=== PATIENT | male | born 1950 | race Caucasian/White ===

== ENCOUNTER 2019-04-18 14:32 | Outpatient (RCR) | payer MEDICARE, OTHER, SELFPAY | END 2019-05-12 23:59 | disposition home or self-care (01) | LOC: CR 14:32 | PROVIDERS: Family Provider Internal Medicine; PCP Internal Medicine; Referring Provider Internal Medicine Cardiovascular Disease; Visit Provider Internal Medicine Cardiovascular Disease | DX: Z98.61 Coronary angioplasty status (principal); I25.2 Old myocardial infarction | CPT/HCPCS: 93798 ==

== ENCOUNTER 2019-05-15 10:40 | Outpatient (RCR) | payer MEDICARE, OTHER, SELFPAY | END 2019-06-10 23:59 | disposition home or self-care (01) | LOC: CR 10:40 | PROVIDERS: Family Provider Internal Medicine; PCP Internal Medicine; Referring Provider Internal Medicine Cardiovascular Disease; Visit Provider Internal Medicine Cardiovascular Disease | DX: I25.2 Old myocardial infarction (principal); Z95.5 Presence of coronary angioplasty implant and graft | CPT/HCPCS: 93798 ==

== ENCOUNTER 2019-06-12 11:19 | Outpatient (RCR) | payer MEDICARE, OTHER, SELFPAY | END 2019-07-11 23:59 | disposition home or self-care (01) | LOC: CR 11:19 | PROVIDERS: Family Provider Internal Medicine; PCP Internal Medicine; Referring Provider Internal Medicine Cardiovascular Disease; Visit Provider Internal Medicine Cardiovascular Disease | DX: Z98.61 Coronary angioplasty status (principal) | CPT/HCPCS: 93798 ==

== ENCOUNTER → 2020-01-29 14:37 | Outpatient (BNVA) | payer MEDICARE, OTHER, SELFPAY | PROVIDERS: Family Provider Internal Medicine; PCP Internal Medicine; Visit Provider Nurse Practitioner Family | DX: I10 Essential (primary) hypertension (principal); I25.10 Atherosclerotic heart disease of native coronary artery without angina pectoris | CPT/HCPCS: 80048 ==

== ENCOUNTER 2020-04-03 20:24 | Emergency (ER) | payer MEDICARE, OTHER, SELFPAY ==
[2020-04-03 20:27] VITALS: BP 163/82; PULSE 58; RESP 18; TEMP 36.7; O2SAT 97; BMI 26.4
--- NOTE | 2020-04-03 20:54 | XRR_ITS ---
PROCEDURE INFORMATION: Exam: XR Chest, 1 View Exam date and time: 04/03/2020 9:02 PM Age: 69 years old Clinical indication: Chest pain; Type not specified; Prior surgery; Surgery type: Stents; Additional info: Chest discomfort TECHNIQUE: Imaging protocol: XR of the chest Views: 1 view. COMPARISON: CR Chest 2 views* [id number] 03/01/2019 11:42 AM FINDINGS: Lungs: Unremarkable. No consolidation. Pleural space: Unremarkable. No pleural effusion. No pneumothorax. Heart/Mediastinum: Unremarkable. No cardiomegaly. Bones/joints: A metal plate and screws is present from lower cervical spine fusion. XR/XR chest 1V portable [id number] IMPRESSION: No acute abnormalities are seen in the chest.
--- NOTE | 2020-04-03 20:57 | ED_ITS ---
Documented by User: James Victoria MD 04/03/20 23:41 HPI - Chest Pain General: Chief Complaint: Chest Pain Stated Complaint: primary sent over if pb didn't lower by 8pm 182/78 Time Seen by Provider: 04/03/20 20:47 History of Present Illness: HPI narrative: The patient is a 69-year-old male who comes to the ER complaining of discomfort in his mid chest he describes as heartburn, flushing in his face, and elevated blood pressure for the past few hours. He went and saw his physician today who said of his blood pressure was not less than 180 at 8 PM to go to the ER. He took it at 8 PM and it was 181 systolic so he comes to the ER. Here his blood pressure is 163 systolic and he feels quite a bit better but still has the heartburn pain and mild flushing of his face. He has known cardiac disease with stents he had an GA in February 2019. He does not feel chest pain today Pertinent past history: coronary artery disease and prior GA Onset (ago): hour(s) (3) Timing of current episode: episodic Prior episodes: No Onset: during rest Pain radiation: none Severity: mild Quality: burning Associated symptoms: Deny abdominal pain, dyspnea or palpitations Review of Systems General: Reports: 10 or more systems reviewed and unremarkable except in HPI and below Const: Denies: fatigue Eyes: Denies: change in vision, blurry vision or eye redness ENMT: Denies: throat pain, swelling of lips/tongue, ear or mastoid pain or nasal congestion Card: Denies: chest pain, palpitations, irregular heart rhythm, edema, dyspnea on exertion or orthopnea Resp: Denies: dyspnea, productive cough or non-productive cough GI: Denies: abdominal pain, diarrhea or GI cramping : Denies: flank pain, urinary frequency or urinary urgency Musc: Denies: neck pain, back pain, extremity pain, joint pain, joint redness, limited range of motion or muscle weakness Skin/Breast: Denies: rash, pruritus, erythema, skin pain or skin tenderness Neuro: Denies: headache(s), numbness in extremities, weakness in extremities, sensory changes, difficulty walking, dizziness, confusion or Slurred speech present Psych: Denies: anxiety or depression Endo: Denies: polyuria All/Imm: Denies: urticaria, throat swelling or tongue swelling PFSH ED PFS: Medical History (Updated 04/03/20 @ 23:45 by Kiera Ojeda MD) ASHD (arteriosclerotic heart disease) Dyslipidemia HTN (hypertension) Myocardial infarction Surgical History S/P PTCA (percutaneous transluminal coronary angioplasty) Social History Smoking and tobacco status: never smoked Alcohol intake: never Household members: spouse Marital status: Physical Exam Const: COMMON NORMALS: no acute distress, average body habitus, patient oriented x3, no limitations, healthy appearing, alert and well nourished GENERAL APPEARANCE: cooperative, comfortable, well kempt and well developed ORIENTATION/CONSCIOUSNESS: Yes awake, Yes oriented to person, Yes oriented to place and Yes oriented to time HENMT: COMMON NORMALS: normocephalic, external ears normal and Normal external nose present HEAD & SCALP: normal to inspection and normocephalic NOSE: Normal external nose present EXTERNAL EAR: Yes external ears normal MOUTH: Normal oral and palatal mucosa present THROAT: posterior oropharynx normal Eye: COMMON NORMALS: Equal, round and reactive pupils present and EOMs intact bilaterally GENERAL EYE: appearance normal, both eyes and all related structures PUPIL: Yes Equal, round and reactive pupils present Neck/C-Spine: COMMON NORMALS: full ROM, no lymphadenopathy, no meningeal signs and no JVD GENERAL: Yes normal visual inspection Lymph: LYMPHATIC: no lymphadenopathy noted Chest: COMMONS NORMALS: normal inspection of the chest and normal palpation of entire chest wall Resp: COMMON NORMALS: normal respiratory effort, No retractions, No use of accessory muscles, clear to auscultation bilaterally and percussion normal EFFORT & INSPECTION: Yes able to speak in complete sentences AUSCULTATION: clear to auscultation bilaterally PERCUSSION: percussion normal Cardio: COMMON NORMALS: no JVD, regular rate, regular rhythm, S1 normal heart sound present, S2 normal heart sound present and Peripheral pulses 2+ throughout RATE: regular rate RHYTHM: regular rhythm HEART SOUNDS: S1 normal heart sound present and S2 normal heart sound present PERIPHERAL PULSES: Peripheral pulses 2+ throughout GI: COMMON NORMALS: Normal to inspection, nondistended, normoactive bowel sounds present, Soft to palpation, non-tender and no masses INSPECTION: Yes normal to inspection PALPATION: Yes Soft to palpation : COMMON NORMALS: Yes no CVA tenderness BLADDER/KIDNEY EXAM: Yes no CVA tenderness Back/Pelvis: COMMON NORMALS: no CVA tenderness, thoracic and lumbar spine normal to inspection, no thoracic nor lumbar tenderness and thoraco-lumbar ROM normal Extremity: COMMON NORMALS: normal to inspection, full ROM, capillary refill normal, no joint enlargement and no pedal edema GENERAL: Yes normal exam ex cept as noted Neuro: COMMON NORMALS: patient oriented x3, CN's II-XII intact bilaterally, moves all extremities, no focal motor deficits, no sensory deficits noted and gait normal SENSORIUM/ORIENTATION: Yes alert, Yes oriented to person, Yes oriented to place and Yes oriented to time MENINGEAL SIGNS: Yes no meningeal signs Psych: COMMON NORMALS: mental status grossly normal, Normal thought process present, cooperative, normal affect and speech normal APPEARANCE: Yes well kempt ATTITUDE: Yes calm SPEECH: Yes normal speech THOUGHT PROCESS: Normal thought process present Skin: COMMON NORMALS: no rashes or lesions noted GENERAL SKIN EXAM: no rashes or lesions noted Course Reevaluation(s): Reevaluation #1: Blood pressure spontaneously reduced to 136 systolic. His symptoms of flushing have resolved, headache much less. The GI cocktail resolved his heartburn discomfort that he was having almost immediately. First troponin is negative, waiting on the second then will discharge. Transfer care to Dr. Ojeda at 1141PM. waiting on 2nd troponin. Time: 23:27 Vital Signs: Vital signs: Vital Signs Temperature 98.1 F 04/03/20 20:27 Pulse Rate 65 04/03/20 23:53 Respiratory Rate 16 04/03/20 23:53 Blood Pressure 127/70 04/03/20 23:53 Pulse Oximetry 99 04/03/20 23:53 MDM - Chest Pain Lab Data: Labs: Lab Results 04/03/20 04/03/20 04/03/20 Range/Units 21:10 21:10 21:10 WBC 6.6 (4.0-10.0) 10^3/ uL RBC 5.15 (4.1-5.3) 10^6/u L Hgb 14.6 (11.7-16.6) g/dL Hct 45.0 (42.0-52.0) % MCV 87.4 (80-94) fL MCH 28.3 (28.0-34.0) pg MCHC 32.4 (30.0-36.0) g/dL RDW 12.7 (12.1-15.1) % Plt Count 195 (130-400) 10^3/c mm MPV 10.9 H (7.4-10.4) fL Neut % (Auto) 61.2 % Lymph % (Auto) 24.1 % [place] % (Auto) 9.2 % Eos % (Auto) 3.2 % Baso % (Auto) 1.7 % Neut # (Auto) 4.04 (1.8-7.7) 10^3/u L Lymph # (Auto) 1.6 (0.8-4.8) 10^3/u L [place] # (Auto) 0.6 (0.2-0.9) 10^3/u L Eos # (Auto) 0.2 (0.0-0.8) 10^3/u L Baso # (Auto) 0.1 (0.0-0.1) 10^3/u L Nucleated RBC % (a uto) 0 % Nucleated RBCs # 0.0 /100WBC D-Dimer 0.41 (0-0.59) ug/mIFE U Sodium 138 (136-145) mmol/L Potassium 3.6 (3.5-5.1) mmol/L Chloride 102 (98-107) mmol/L Carbon Dioxide 26 (22-29) mmol/L Anion Gap 13.6 (5-19) BUN 15 (8-23) mg/dL Creatinine 0.7 (0.7-1.2) mg/dL GFR Calculation 111.8 (90-130) mL/min Glucose 130 H (65-115) mg/dL Calculated Osmolal ity 289 (285-295) mOsm/k g Calcium 9.6 (8.5-10.5) mg/dL Total Bilirubin 0.5 (0.15-1.2) mg/dL AST 20 (0-40) U/L ALT 24 (0-41) U/L Alkaline Phosphata se 124 (40-130) IU/L Troponin T Baselin e (0-15) ng/L Troponin T 120 Min council (0-15) ng/L Delta Troponin T (0-10) ABS# NT-Pro-B Natriuret Pep 253 H (0-125) pg/mL Total Protein 6.5 L (6.6-8.7) g/dL Albumin 4.2 (3.5-5.2) g/dL Globulin 2.3 (1.3-4.6) g/dL 04/03/20 04/03/20 Range/Units 21:10 23:02 WBC (4.0-10.0) 10^3/ uL RBC (4.1-5.3) 10^6/u L Hgb (11.7-16.6) g/dL Hct (42.0-52.0) % MCV (80-94) fL MCH (28.0-34.0) pg MCHC (30.0-36.0) g/dL RDW (12.1-15.1) % Plt Count (130-400) 10^3/c mm MPV (7.4-10.4) fL Neut % (Auto) % Lymph % (Auto) % [place] % (Auto) % Eos % (Auto) % Baso % (Auto) % Neut # (Auto) (1.8-7.7) 10^3/u L Lymph # (Auto) (0.8-4.8) 10^3/u L [place] # (Auto) (0.2-0.9) 10^3/u L Eos # (Auto) (0.0-0.8) 10^3/u L Baso # (Auto) (0.0-0.1) 10^3/u L Nucleated RBC % (a uto) % Nucleated RBCs # /100WBC D-Dimer (0-0.59) ug/mIFE U Sodium (136-145) mmol/L Potassium (3.5-5.1) mmol/L Chloride (98-107) mmol/L Carbon Dioxide (22-29) mmol/L Anion Gap (5-19) BUN (8-23) mg/dL Creatinine (0.7-1.2) mg/dL GFR Calculation (90-130) mL/min Glucose (65-115) mg/dL Calculated Osmolal ity (285-295) mOsm/k g Calcium (8.5-10.5) mg/dL Total Bilirubin (0.15-1.2) mg/dL AST (0-40) U/L ALT (0-41) U/L Alkaline Phosphata se (40-130) IU/L Troponin T Baselin e 11 (0-15) ng/L Troponin T 120 Min council 10.49 (0-15) ng/L Delta Troponin T -0.51 L (0-10) ABS# NT-Pro-B Natriuret Pep (0-125) pg/mL Total Protein (6.6-8.7) g/dL Albumin (3.5-5.2) g/dL Globulin (1.3-4.6) g/dL Discharge Plan Discharge Patient Disposition: Home Clinical Impression: Chest pain Qualifiers: Chest pain type: unspecified Qualified Code(s): R07.9 - Chest pain, unspecified Condition: Stable Prescriptions: No Action B12 Active 1,000 mcg tablet,chewable 1,000 mcg PO DAILY@0700 RF: 0 acetaminophen [Tylenol Extra Strength] 500 mg tablet 500 mg PO Q6H PRN (Reason: Pain) RF: 0 amlodipine 5 mg tablet 10 mg PO DAILY@0700 RF: 0 clopidogrel 75 mg tablet 75 mg PO DAILY@0700 RF: 0 pantoprazole 40 mg tablet,delayed release (DR/EC) 40 mg PO DAILY@0700 RF: 0 nitroglycerin [Nitrostat] 0.4 mg tablet, sublingual 0.4 mg SUBLINGUAL Q5M PRN (Reason: chest pain) Qty: 60 RF: 3 Aspir-81 81 mg Tablet,Delayed Release (Dr/Ec) 81 mg PO DAILY@0700 RF: 0 atorvastatin 80 mg tablet 80 mg PO DAILY@0700 RF: 0 valsartan-hydrochlorothiazide 160-12.5 mg tablet 1 tab PO BID@0700,2100 RF: 0 metoprolol tartrate 25 mg tablet 12.5 mg PO BID@0700,2100 RF: 0 Discharge Orders: Discharge ED (Routine); Ordered 04/03/20 Ordered By: Kiera Ojeda Referrals: Nas Malagon DO [Primary Care Provider] - 1-3 days Discharge Diet: Advance as tolerated Discharge Activity: Resume usual activity Patient Instructions: Chest Pain (ED) Coding Level of Care Code ED Mitering Machine Operator for g Fwd Exam Comprehensive Documented by User: Kiera Ojeda MD 04/04/20 00:19 HPI - Chest Pain General: Chief Complaint: Chest Pain Stated Complaint: primary sent over if pb didn't lower by 8pm 182/78 Time Seen by Provider: 04/03/20 20:47 PFSH ED PFSH: Medical History (Updated 04/03/20 @ 23:45 by Kiera Ojeda MD) ASHD (arteriosclerotic heart disease) Dyslipidemia HTN (hypertension) Myocardial infarction Surgical History S/P PTCA (percutaneous transluminal coronary angioplasty) Social History Smoking and tobacco status: never smoked Alcohol intake: never Household members: spouse Marital status: Course Vital Signs: Vital signs: Vital Signs Temperature 98.1 F 04/03/20 20:27 Pulse Rate 65 04/03/20 23:53 Respiratory Rate 16 04/03/20 23:53 Blood Pressure 127/70 04/03/20 23:53 Pulse Oximetry 99 04/03/20 23:53 MDM - Chest Pain MDM Narrative: Medical decision making narrative: Patient presents here with chest pain that is atypical in nature. Initial repeat troponins here are negative. Patient is stable for discharge and is to follow-up his PCP in 3 to 5 days return if worsening. He understands and agrees to the plan. Lab Data: Labs: Lab Results 04/03/20 04/03/20 04/03/20 Range/Units 21:10 21:10 21:10 WBC 6.6 (4.0-10.0) 10^3/ uL RBC 5.15 (4.1-5.3) 10^6/u L Hgb 14.6 (11.7-16.6) g/dL Hct 45.0 (42.0-52.0) % MCV 87.4 (80-94) fL MCH 28.3 (28.0-34.0) pg MCHC 32.4 (30.0-36.0) g/dL RDW 12.7 (12.1-15.1) % Plt Count 195 (130-400) 10^3/c mm MPV 10.9 H (7.4-10.4) fL Neut % (Auto) 61.2 % Lymph % (Auto) 24.1 % [place] % (Auto) 9.2 % Eos % (Auto) 3.2 % Baso % (Auto) 1.7 % Neut # (Auto) 4.04 (1.8-7.7) 10^3/u L Lymph # (Auto) 1.6 (0.8-4.8) 10^3/u L [place] # (Auto) 0.6 (0.2-0.9) 10^3/u L Eos # (Auto) 0.2 (0.0-0.8) 10^3/u L Baso # (Auto) 0.1 (0.0-0.1) 10^3/u L Nucleated RBC % (a uto) 0 % Nucleated RBCs # 0.0 /100WBC D-Dimer 0.41 (0-0.59) ug/mIFE U Sodium 138 (136-145) mmol/L Potassium 3.6 (3.5-5.1) mmol/L Chloride 102 (98-107) mmol/L Carbon Dioxide 26 (22-29) mmol/L Anion Gap 13.6 (5-19) BUN 15 (8-23) mg/dL Creatinine 0.7 (0.7-1.2) mg/dL GFR Calculation 111.8 (90-130) mL/min Glucose 130 H (65-115) mg/dL Calculated Osmolal ity 289 (285-295) mOsm/k g Calcium 9.6 (8.5-10.5) mg/dL Total Bilirubin 0.5 (0.15-1.2) mg/dL AST 20 (0-40) U/L ALT 24 (0-41) U/L Alkaline Phosphata se 124 (40-130) IU/L Troponin T Baselin e (0-15) ng/L Troponin T 120 Min council (0-15) ng/L Delta Troponin T (0-10) ABS# NT-Pro-B Natriuret Pep 253 H (0-125) pg/mL Total Protein 6.5 L (6.6-8.7) g/dL Albumin 4.2 (3.5-5.2) g/dL Globulin 2.3 (1.3-4.6) g/dL 04/03/20 04/03/20 Range/Units 21:10 23:02 WBC (4.0-10.0) 10^3/ uL RBC (4.1-5.3) 10^6/u L Hgb (11.7-16.6) g/dL Hct (42.0-52.0) % MCV (80-94) fL MCH (28.0-34.0) pg MCHC (30.0-36.0) g/dL RDW (12.1-15.1) % Plt Count (130-400) 10^3/c mm MPV (7.4-10.4) fL Neut % (Auto) % Lymph % (Auto) % [place] % (Auto) % Eos % (Auto) % Baso % (Auto) % Neut # (Auto) (1.8-7.7) 10^3/u L Lymph # (Auto) (0.8-4.8) 10^3/u L [place] # (Auto) (0.2-0.9) 10^3/u L Eos # (Auto) (0.0-0.8) 10^3/u L Baso # (Auto) (0.0-0.1) 10^3/u L Nucleated RBC % (a uto) % Nucleated RBCs # /100WBC D-Dimer (0-0.59) ug/mIFE U Sodium (136-145) mmol/L Potassium (3.5-5.1) mmol/L Chloride (98-107) mmol/L Carbon Dioxide (22-29) mmol/L Anion Gap (5-19) BUN (8-23) mg/dL Creatinine (0.7-1.2) mg/dL GFR Calculation (90-130) mL/min Glucose (65-115) mg/dL Calculated Osmolal ity (285-295) mOsm/k g Calcium (8.5-10.5) mg/dL Total Bilirubin (0.15-1.2) mg/dL AST (0-40) U/L ALT (0-41) U/L Alkaline Phosphata se (40-130) IU/L Troponin T Baselin e 11 (0-15) ng/L Troponin T 120 Min council 10.49 (0-15) ng/L Delta Troponin T -0.51 L (0-10) ABS# NT-Pro-B Natriuret Pep (0-125) pg/mL Total Protein (6.6-8.7) g/dL Albumin (3.5-5.2) g/dL Globulin (1.3-4.6) g/dL Discharge Plan Discharge Patient Disposition: Home Clinical Impression: Chest pain Qualifiers: Chest pain type: unspecified Qualified Code(s): R07.9 - Chest pain, unspecified Condition: Stable Prescriptions: No Action B12 Active 1,000 mcg tablet,chewable 1,000 mcg PO DAILY@0700 RF: 0 acetaminophen [Tylenol Extra Strength] 500 mg tablet 500 mg PO Q6H PRN (Reason: Pain) RF: 0 amlodipine 5 mg tablet 10 mg PO DAILY@0700 RF: 0 clopidogrel 75 mg tablet 75 mg PO DAILY@0700 RF: 0 pantoprazole 40 mg tablet,delayed release (DR/EC) 40 mg PO DAILY@0700 RF: 0 nitroglycerin [Nitrostat] 0.4 mg tablet, sublingual 0.4 mg SUBLINGUAL Q5M PRN (Reason: chest pain) Qty: 60 RF: 3 Aspir-81 81 mg Tablet,Delayed Release (Dr/Ec) 81 mg PO DAILY@0700 RF: 0 atorvastatin 80 mg tablet 80 mg PO DAILY@0700 RF: 0 valsartan-hydrochlorothiazide 160-12.5 mg tablet 1 tab PO BID@0700,2100 RF: 0 metoprolol tartrate 25 mg tablet 12.5 mg PO BID@0700,2100 RF: 0 Discharge Orders: Discharge ED (Routine); Ordered 04/03/20 Ordered By: Kiera Ojeda Referrals: Nas Malagon DO [Primary Care Provider] - 1-3 days Discharge Diet: Advance as tolerated Discharge Activity: Resume usual activity Patient Instructions: Chest Pain (ED) Coding Level of Care Code ED Mitering Machine Operator for Chg Fwd Exam Comprehensive
[2020-04-03 21:19] LABS: Basophils # 0.1 10^3/uL (0.0-0.1); Basophils % 1.7 %; Eosinophils # 0.2 10^3/uL (0.0-0.8); Eosinophils % 3.2 %; Hemoglobin 14.6 g/dL (11.7-16.6); Lymphocytes # 1.6 10^3/uL (0.8-4.8); Lymphocytes % 24.1 %; Mean Corpuscular HGB Conc 32.4 g/dL (30.0-36.0); Mean Corpuscular Hemoglobin 28.3 pg (28.0-34.0); Mean Corpuscular Volume 87.4 fL (80-94); Mean Platelet Volume 10.9 fL (7.4-10.4); Monocytes # 0.6 10^3/uL (0.2-0.9); Monocytes % 9.2 %; Neutrophils # 4.04 10^3/uL (1.8-7.7); Neutrophils % 61.2 %; Nucleated Red Blood Cells % 0 %; Platelet Count 195 10^3/cmm (130-400); Red Blood Count 5.15 10^6/uL (4.1-5.3); Red Cell Distribution Width 12.7 % (12.1-15.1); White Blood Count 6.6 10^3/uL (4.0-10.0)
[2020-04-03] MEDS: acetaminophen 325 mg Tablet 650 MG PO (21:31)
[2020-04-03] MEDS: lidocaine 2% viscous 15 ML, aluminum-mag hydrox-simethicon 30 ML, sucralfate oral liq 1 GM PO (21:31)
[2020-04-03 21:36] LABS: D Dimer 0.41 ug/mIFEU (0-0.59)
[2020-04-03 21:46] LABS: Troponin(5th) Baseline 11 ng/L (0-15)
[2020-04-03 21:55] LABS: Alanine Aminotransferase 24 U/L (0-41); Albumin Level 4.2 g/dL (3.5-5.2); Alkaline Phosphatase 124 IU/L (40-130); Anion Gap 13.6 (5-19); Aspartate Amino Transferase 20 U/L (0-40); Blood Urea Nitrogen 15 mg/dL (8-23); Calcium 9.6 mg/dL (8.5-10.5); Carbon Dioxide 26 mmol/L (22-29); Chloride 102 mmol/L (98-107); Globulin 2.3 g/dL (1.3-4.6); Glomerular Filtration Rate 111.8 mL/min (90-130); Glucose 130 mg/dL (65-115); NT Pro B Type Natriuretic Pept 253 pg/mL (0-125); Osmolality Calculated 289 mOsm/kg (285-295); Potassium 3.6 mmol/L (3.5-5.1); Sodium 138 mmol/L (136-145); Total Bilirubin 0.5 mg/dL (0.15-1.2); Total Protein 6.5 g/dL (6.6-8.7)
[2020-04-03 22:31] VITALS: BP 136/71; PULSE 57; RESP 16; O2SAT 98
--- NOTE | 2020-04-03 22:54 | ECG_ITS ---
[facility] Test Date: 2020-04-03 Pat Name: Selwyn Quintanilla Department: Room: Gender: Male Barrel Plater: : 1950 Requested By: James Victoria Order Number: [id number] Carrasquillo MD: Coco Smith M.D. Measurements Intervals [place] Rate: 48 P: 55 IL: 166 QRS: 80 QRSD: 106 T: 80 QT: 466 QTc: 420 Interpretive Statements SINUS BRADYCARDIA WITH SINUS ARRHYTHMIA MINIMAL ST DEPRESSION [0.025+ mV ST DEPRESSION] Compared to ECG 02/16/2019 20:38:26 ST (T wave) deviation now present Sinus rhythm no longer present Ventricular-paced complex(es) or rhythm no longer present T-wave abnormality no longer present Electronically Signed On 04-07-2020 10:10:56 LUMBER SORTER by Coco Smith M.D. [id number]
--- NOTE | 2020-04-03 23:10 | PC.NURSE ---
EKG done at 2307 and shown to ER doctor
[2020-04-03 23:42] LABS: Troponin 5 2HR 10.49 ng/L (0-15)
[2020-04-03 23:44] LABS: Troponin 5 2HR Delta -0.51 ABS# (0-10)
[2020-04-03 23:53] VITALS: BP 127/70; PULSE 65; RESP 16; O2SAT 99
== END 2020-04-03 23:54 | disposition home or self-care (01) ==
PROVIDERS: Family Medicine; Emergency Provider Emergency Medicine; PCP Internal Medicine
DX: R07.9 Chest pain, unspecified (principal); Z79.82 Long term (current) use of aspirin; Z79.02 Long term (current) use of antithrombotics/antiplatelets; E78.5 Hyperlipidemia, unspecified; I10 Essential (primary) hypertension; I25.2 Old myocardial infarction
CPT/HCPCS: 12345; 71045; 80053; 83880; 84484; 85025; 85378; 93005; 99282; 99284

== ENCOUNTER 2020-06-27 08:16 | Outpatient (CLI) | payer MEDICARE, OTHER, SELFPAY ==
--- NOTE | 2020-06-27 08:15 | XR_ITS ---
WS: [id number] XR KUB [id number] REASON FOR EXAM: Stones FINDINGS: Compared to previous examination 06/27/2018, no significant interval change. A small, 3 mm, calculus i s identified overlying the mid left kidney. No other urinary tract calculi are identified. Normal bowel gas pattern. No free air or retroperitoneal air. XR/XR KUB [id number] IMPRESSION: Small left intrarenal calculus, no interval change.
== END 2020-06-27 08:17 | disposition home or self-care (01) ==
PROVIDERS: PCP Internal Medicine; Visit Provider Urology
DX: N20.0 Calculus of kidney (principal)
CPT/HCPCS: 74018; 81003

== ENCOUNTER 2021-04-30 19:33 | Emergency (ER) | payer MEDICARE, OTHER, SELFPAY ==
--- NOTE | 2021-04-30 | XRR_ITS ---
[facility] Final Radiology Report Call: [phone] assistance Online chat: [email or web address] Name: GAYATRI MENSAH Age: 70Years M Date: 04/30/2021 SSN: -- : 1950 Study: XR CHEST 1 VIEW Requesting Physician: ALISON DUTTON Images: 1 Add?l Studies: Provided Clinical History: PROCEDURE INFORMATION: Exam: XR Chest Exam date and time: 04/30/2021 8:27 PM Age: 70 years old Clinical indication: Sternal or substernal pain TECHNIQUE: Imaging protocol: XR of the chest. Views: 1 view. COMPARISON: No relevant prior studies available. FINDINGS: Lungs: Unremarkable. No consolidation. Pleural spaces: Unremarkable. No pleural effusion. No pneumothorax. Heart/Mediastinum: Unremarkable. No cardiomegaly. Bones/joints: ACDF noted in the lower cervical spine. Visualized osseous structures are intact. IMPRESSION: No acute findings. Thank you for allowing us to participate in the care of your patient. Dictated and Authenticated by: Marco A Daigle DO 04/30/2021 9:23 PM Central Time ([place] & [place]) MELISSA
[2021-04-30 19:35] VITALS: BP 170/81; PULSE 69; RESP 18; TEMP 36.9; O2SAT 95; BMI 25.8
[2021-04-30 20:05] VITALS: BP 170/81; PULSE 65; RESP 19; O2SAT 96
--- NOTE | 2021-04-30 20:08 | W.ED.CHESTPA ---
HPI - Chest Pain General: Chief Complaint: Chest Pain Stated Complaint: CP, Syncope Time Seen by Provider: 04/30/21 19:38 Source: patient Mode of arrival: EMS Limitations: no limitations History of Present Illness: HPI narrative: 70-year-old male had finished eating dinner, developed what he thought was heartburn/indigestion at around 6 PM tonight. Describes discomfort and pressure in his epigastrium and chest, belching. He tried taking some Tums without any improvement. He then took a sublingual nitroglycerin tablet, and about 5 minutes later started feeling he was going to pass out. He kneeled down on the ground, and then collapsed briefly. When he regained consciousness, he vomited several times and felt much better, chest pain resolved. He was prescribed the nitroglycerin 2 years ago after his KS, but has never taken it until today. 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 Onset (ago): hour(s) Timing of current episode: now resolved Prior episodes: No Onset: after eating Pain location: substernal and epigastric Relieving factors: other (vomiting) Associated symptoms: Reports nausea, syncope (5 minutes after taking SL nitroglycerin) and vomiting; Deny dyspnea, fever(s) or palpitations Treatment prior to arrival: nitroglycerin Review of Systems Const: Denies: fever(s), chills, body aches or change in appetite Eyes: Denies: change in vision, blurry vision or blind spots Card: Reports: chest pain, lightheadedness, syncope (5 minutes after taking SL nitroglycerin) and pre-syncope; Denies: palpitations, irregular heart rhythm, swelling of feet/ankles, dyspnea on exertion or orthopnea Resp: Denies: dyspnea, productive cough, non-productive cough or wheezing GI: Reports: nausea, vomiting, heartburn and belching Musc: Denies: neck pain, back pain, extremity pain or extremity swelling Skin/Breast: Denies: rash, pruritus or erythema Neuro: Denies: headache(s), numbness in extremities or weakness in extremities PFS ED PFSH: Medical History ASHD (arteriosclerotic heart disease) Bilateral renal stones Dyslipidemia HTN (hypertension) Myocardial infarction Surgical History S/P PTCA (percutaneous transluminal coronary angioplasty) Family History Father , at age 94 COVID-19 Mother , at age 92 No problems noted. 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 History of recent travel: No Physical Exam Const: COMMON NORMALS: no acute distress, average body habitus, patient oriented x3 and alert GENERAL APPEARANCE: cooperative, comfortable, well kempt and well developed; not in distress, not ill appearing and not frail appearing ORIENTATION/CONSCIOUSNESS: Yes oriented to person, Yes oriented to place and Yes oriented to time HENMT: COMMON NORMALS: normocephalic and atraumatic HEAD & SCALP: normocephalic and atraumatic FACE & SINUS: normal facial exam and face symmetric Eye: COMMON NORMALS: Equal, round and reactive pupils present, EOMs intact bilaterally, conjunctivae normal and no scleral icterus CONJUNCTIVA: Yes conjunctivae normal PUPIL: Yes Equal, round and reactive pupils present Neck/C-Spine: COMMON NORMALS: full ROM, no lymphadenopathy, supple and no JVD Resp: COMMON NORMALS: normal respiratory effort, No retractions and No use of accessory muscles EFFORT & INSPECTION: Yes able to speak in complete sentences Cardio: COMMON NORMALS: no JVD, regular rate and regular rhythm RATE: regular rate RHYTHM: regular rhythm Extremity: COMMON NORMALS: normal to inspection, full ROM and capillary refill normal Neuro: COMMON NORMALS: patient oriented x3, CN's II-XII intact bilaterally and moves all extremities SENSORIUM/ORIENTATION: Yes alert, Yes oriented to person, Yes oriented to place and Yes oriented to time Psych: APPEARANCE: Yes well kempt Skin: COMMON NORMALS: no rashes or lesions noted, no wounds, turgor normal and no jaundice GENERAL SKIN EXAM: no rashes or lesions noted and turgor normal Course Vital Signs: Vital signs: Vital Signs Temperature 98.5 F 04/30/21 19:35 Pulse Rate 65 04/30/21 20:05 Respiratory Rate 19 H 04/30/21 20:05 Blood Pressure 170/81 04/30/21 20:05 Pulse Oximetry 96 04/30/21 20:05 MDM - Chest Pain MDM Narrative: Medical decision making narrative: 70 year old male had onset of chest pain shortly after eating. He took a dose of nitro and then had a syncopal event shortly after. He no longer has chest pain, feels back to baseline. Initial EKG did not show any acute abnormalities. Serial troponin levels wnl. No changes on 2-hour repeat EKG. No further episodes of chest pain. No other acute lab abnormalities. Chest x-ray clear. Instructed to follow-up with his facilities clerk and his PCP as soon as possible. Avoid taking nitroglycerin in the future Return for any recurrent chest pain or dizziness. Differential Diagnosis: Cardiac arrest differential diagnosis: Likely acute myocardial infarction Medical Records: Attestation: I reviewed the patient's medical records. Lab Data: Attestation: I reviewed the patient's lab results. Labs: Lab Results 04/30/21 04/30/21 04/30/21 20:58 20:58 20:58 WBC 10.7 10^3/uL H 10 ^3/uL (4.0-10.0) RBC 5.32 10^6/uL H 10 ^6/uL (4.1-5.3) Hgb 15.3 g/dL g/dL (11.7-16.6) Hct 47.4 % % (42.0-52.0) MCV 89.1 fl fl (80-94) MCH 28.8 pg pg (28.0-34.0) MCHC 32.3 g/dL g/dL (30.0-36.0) RDW 13.5 % % (12.1-15.1) Plt Count 209 10^3/cmm 10^3 /cmm (130-400) MPV 12.0 fL H fL (7.4-10.4) Neut % (Auto) 76.4 % % Lymph % (Auto) 10.2 % % [place] % (Auto) 8.5 % % Eos % (Auto) 3.2 % % Baso % (Auto) 1.0 % % Neut # (Auto) 8.14 10^3/uL H 10 ^3/uL (1.8-7.7) Lymph # (Auto) 1.1 10^3/uL 10^3/ uL (0.8-4.8) [place] # (Auto) 0.9 10^3/uL 10^3/ uL (0.2-0.9) Eos # (Auto) 0.3 10^3/uL 10^3/ uL (0.0-0.8) Baso # (Auto) 0.1 10^3/uL 10^3/ uL (0.0-0.1) Nucleated RBC % (a uto) 0 % % Nucleated RBCs # 0.0 /100WBC /100W BC Sodium 139 mmol/L mmol/L (136-145) Potassium 4.3 mmol/L mmol/L (3.5-5.1) Chloride 100 mmol/L mmol/L (98-107) Carbon Dioxide 28 mmol/L mmol/L (22-29) Anion Gap 15.3 (5-19) BUN 17 mg/dL mg/dL (8-23) Creatinine 0.7 mg/dL mg/dL (0.7-1.2) GFR Calculation 111.5 mL/min mL/m in (90-130) Glucose 104 mg/dL mg/dL (65-115) Calculated Osmolal ity 290 mOsm/kg mOsm/ kg (285-295) Calcium 8.7 mg/dL mg/dL (8.5-10.5) Magnesium 2.2 mg/dL mg/dL (1.7-2.3) Total Bilirubin 0.5 mg/dL mg/dL (0.15-1.2) AST 20 U/L U/L (0-40) ALT 18 U/L U/L (0-41) Alkaline Phosphata se 127 IU/L IU/L (40-130) Troponin T Baselin e 11 ng/L ng/L (0-15) Troponin T 120 Min [place] Troponin T Total Protein 6.7 g/dL g/dL (6.6-8.7) Albumin 4.5 g/dL g/dL (3.5-5.2) Globulin 2.2 g/dL g/dL (1.3-4.6) 04/30/21 22:51 WBC RBC Hgb Hct MCV MCH MCHC RDW Plt Count MPV Neut % (Auto) Lymph % (Auto) [place] % (Auto) Eos % (Auto) Baso % (Auto) Neut # (Auto) Lymph # (Auto) [place] # (Auto) Eos # (Auto) Baso # (Auto) Nucleated RBC % (a uto) Nucleated RBCs # Sodium Potassium Chloride Carbon Dioxide Anion Gap BUN Creatinine GFR Calculation Glucose Calculated Osmolal ity Calcium Magnesium Total Bilirubin AST ALT Alkaline Phosphata se Troponin T Baselin e Troponin T 120 Min [place] 9.71 ng/L ng/L (0-15) Delta Troponin T -1.29 ABS# L ABS# (0-10) Total Protein Albumin Globulin EKG Data^: EKG 1: Attestation: I personally reviewed and interpreted this EKG as follows: EKG interpretation date: 04/30/21 EKG interpretation time: 19:45 Prior EKG tracings: available for review Interpretation: Normal sinus rhythm with a rate of 61, MI 172, QRS 100, QTc 402, normal axis, no ST segment elevation or depression. No abnormal T wave inversions. Discharge Plan Discharge Patient Disposition: Home Clinical Impression: Chest pain not due to acute coronary syndrome, Adverse effect of nitroglycerin, Syncope and collapse Condition: Stable Prescriptions: Discontinued nitroglycerin [Nitrostat] 0.4 mg tablet, sublingual 0.4 mg SUBLINGUAL Q5M PRN (Reason: chest pain) Qty: 60 RF: 3 No Action B12 Active 1,000 mcg tablet,chewable 1,000 mcg PO DAILY@0700 RF: 0 acetaminophen [Tylenol Extra Strength] 500 mg tablet 500 mg PO Q6H PRN (Reason: Pain) RF: 0 pantoprazole 40 mg tablet,delayed release (DR/EC) 40 mg PO DAILY@0700 RF: 0 atorvastatin 80 mg tablet See Rx Instructions .ROUTE .COMPLEX Qty: 90 RF: 3 clopidogrel 75 mg tablet See Rx Instructions .ROUTE .COMPLEX Qty: 90 RF: 3 amlodipine 10 mg tablet 10 mg PO DAILY@0700 Qty: 90 RF: 3 metoprolol tartrate 25 mg tablet 12.5 mg PO BID Qty: 90 RF: 3 valsartan-hydrochlorothiazide 160-12.5 mg tablet 1 tab PO BID@0700,2100 Qty: 180 RF: 2 Aspir-81 81 mg Tablet,Delayed Release (Dr/Ec) 81 mg PO DAILY@0700 RF: 0 Discharge Orders: Discharge ED (Routine); Ordered 04/30/21 Ordered By: Lisbeth Jacobs Referrals: Nas Malagon DO [Primary Care Provider] - Discharge Diet: Advance as tolerated Discharge Activity: Resume usual activity Patient Instructions: Noncardiac Chest Pain (ED) Activity Restrictions/Additional Instructions: Call to schedule a followup appointment with your PCP and facilities clerk as soon as possible. Avoid using nitroglycerin in the future. Return immediately to the ER if you develop recurrent chest pain, fainting, difficulty breathing, or any other concerning symptoms. 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
--- NOTE | 2021-04-30 22:07 | ECG_ITS ---
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 Measurements Intervals [place] Rate: 61 P: 59 GA: 172 QRS: 68 QRSD: 100 T: 71 QT: 398 QTc: 404 Interpretive Statements SINUS RHYTHM Compared to ECG 04/03/2020 23:06:24 Sinus bradycardia no longer present Sinus arrhythmia no longer present ST (T wave) deviation no longer present Electronically Signed On 05-01-2021 19:22:38 DAY CARE HOME PROVIDER by Coco Smith M.D. [id number]
[2021-04-30 22:55] LABS: Alanine Aminotransferase 18 U/L (0-41); Albumin Level 4.5 g/dL (3.5-5.2); Alkaline Phosphatase 127 IU/L (40-130); Blood Urea Nitrogen 17 mg/dL (8-23); Calcium 8.7 mg/dL (8.5-10.5); Carbon Dioxide 28 mmol/L (22-29); Chloride 100 mmol/L (98-107); Globulin 2.2 g/dL (1.3-4.6); Glomerular Filtration Rate 111.5 mL/min (90-130); Glucose 104 mg/dL (65-115); Magnesium 2.2 mg/dL (1.7-2.3); Osmolality Calculated 290 mOsm/kg (285-295); Sodium 139 mmol/L (136-145); Total Bilirubin 0.5 mg/dL (0.15-1.2); Total Protein 6.7 g/dL (6.6-8.7)
[2021-04-30 22:56] LABS: Anion Gap 15.3 (5-19); Aspartate Amino Transferase 20 U/L (0-40); Potassium 4.3 mmol/L (3.5-5.1); Troponin(5th) Baseline 11 ng/L (0-15)
[2021-04-30 22:58] LABS: Basophils # 0.1 10^3/uL (0.0-0.1); Eosinophils # 0.3 10^3/uL (0.0-0.8); Eosinophils % 3.2 %; Hematocrit 47.4 % (42.0-52.0); Hemoglobin 15.3 g/dL (11.7-16.6); Lymphocytes # 1.1 10^3/uL (0.8-4.8); Lymphocytes % 10.2 %; Mean Corpuscular HGB Conc 32.3 g/dL (30.0-36.0); Mean Corpuscular Hemoglobin 28.8 pg (28.0-34.0); Mean Corpuscular Volume 89.1 fl (80-94); Monocytes # 0.9 10^3/uL (0.2-0.9); Monocytes % 8.5 %; Neutrophils # 8.14 10^3/uL (1.8-7.7); Neutrophils % 76.4 %; Nucleated Red Blood Cells % 0 %; Platelet Count 209 10^3/cmm (130-400); Red Blood Count 5.32 10^6/uL (4.1-5.3); Red Cell Distribution Width 13.5 % (12.1-15.1); White Blood Count 10.7 10^3/uL (4.0-10.0)
[2021-04-30 23:19] LABS: Troponin 5 2HR 9.71 ng/L (0-15); Troponin 5 2HR Delta -1.29 ABS# (0-10)
== END 2021-05-01 00:30 | disposition home or self-care (01) ==
PROVIDERS: Emergency Provider Family Medicine; PCP Internal Medicine
DX: R07.9 Chest pain, unspecified (principal); R55 Syncope and collapse; T46.3X5A Adverse effect of coronary vasodilators, initial encounter; Z79.02 Long term (current) use of antithrombotics/antiplatelets; Z79.82 Long term (current) use of aspirin; E78.5 Hyperlipidemia, unspecified; I10 Essential (primary) hypertension; I25.2 Old myocardial infarction
CPT/HCPCS: 36415; 71045; 80053; 83735; 84484; 85025; 93005; 99284

== ENCOUNTER 2021-06-24 06:59 | Outpatient (CLI) | payer MEDICARE, OTHER, SELFPAY ==
[2021-06-24 07:13] VITALS: BMI 26.5
--- NOTE | 2021-06-24 07:18 | ECG_ITS ---
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 Interpretive Statements NAME OF STUDY: LEXISCAN SESTAMIBI STRESS TEST INDICATION: [Chest Pain] Procedure: At the baseline, the blood pressure was 144/77 mmHg with a heart rate of 54 bpm. The electrocardiogram showed sinus bradycardia. No ST T wave changes are noted The Lexiscan was infused over a period of 20 seconds. A total of 0.4 mg of Lexiscan was infused. The stress phase was continued for a total of 5 minutes. Heart rate was at the end of stress phase was 84 bpm and a blood pressure of 155/72 mmHg. The EKG at the peak infusion revealed since normal sinus rhythm with no significant ST-T wave changes. PVCs noted Sestamibi was injected 20 seconds after the Lexiscan infusion. Blood pressure at the end of recovery phase was 142/71 mmHg with a heart rate of 64 bpm. Conclusion: 1. Normal EKG response to Lexiscan infusion 2. No Lexiscan induced chest pain or cardiac arrhythmia. 3. Normal blood pressure and heart rate response. 4. Sestamibi/sestamibi perfusion scan pending; see separate report. Electronically Signed On 07-19-2021 13:06:03 CDT by Abraham Prabhakar M.D. [id number]
--- NOTE | 2021-06-24 07:21 | NMCV_ITS ---
NM yancy perf SPECT r/s* [id number] Selwyn Quintanilla Age: 70 Gender: M : 1950 Exam Date: 06/24/2021 08:07 Ordering Phys: Abraham Prabhakar M.D ([email or web address]) Technologist: KARISHMA Cruz Exam Location: [facility] Indications: CHEST PAIN STRESS TEST [facility] IMAGE PROTOCOL Rest/Stress 1 Lexiscan Day Radiopharmaceutical Dose (mCi) Administration Site Administered by Rest: Tc-99m 10.8 IV KARISHMA Navarro Sestamibi Stress:Tc-99m 32.8 IV KARISHMA Navarro Sestamibi Rest: 24-Jun-2021 60 Discovery 630 Stress: 24-Jun-2021 30 Discovery 630 0.4mg Lexiscan. Images obtained in supine and prone position. SPECT RESULTS Technical Quality: Excellent Raw Data Analysis: Normal Image Corrections: No attenuation or motion correction applied Summed Stress Score: 6 Summed Rest Score: 2 Summed Difference Score: 4 PERFUSION FINDINGS There is a moderate sized , mostly reversible perfusion defect noted in anterior and apical lateral [place]. This is consistent with ischemia in these territories. FUNCTIONAL RESULTS (calculated via Gated SPECT) Stress Image LV EF (%): 60 Stress EDV (mL):140 TID: 1.03 Stress ESV (mL):56 FUNCTIONAL FINDINGS: There is normal left ventricular systolic function. IMPRESSIONS 1. Abnormal myocardial perfusion imaging with moderate sized area of ischemia noted in anterior and apical lateral wall. 2. LV systolic function is normal Abraham Prabhakar MD (Electronically Signed) Final Date: 26 June 2021 12:49 S
[2021-06-24] MEDS: regadenoson 0.4 Mg/5 ml Syringe IVP (08:42)
[2021-06-24 09:00] VITALS: BP 133/62; PULSE 83
== END 2021-06-24 07:00 | disposition home or self-care (01) ==
LOC: RAD 07:00 → CDL 07:13
PROVIDERS: PCP Internal Medicine; Visit Provider Internal Medicine
DX: R07.9 Chest pain, unspecified (principal); R06.02 Shortness of breath
CPT/HCPCS: 78452; 93017; A9500; J2785

== ENCOUNTER → 2021-07-01 15:10 | Outpatient (BNVA) | payer MEDICARE, OTHER, SELFPAY | PROVIDERS: PCP Internal Medicine; Visit Provider Internal Medicine | DX: I25.10 Atherosclerotic heart disease of native coronary artery without angina pectoris (principal); I10 Essential (primary) hypertension; E78.5 Hyperlipidemia, unspecified | CPT/HCPCS: 99214 ==

== ENCOUNTER → 2021-07-03 08:48 | Outpatient (BNVA) | payer MEDICARE, OTHER, SELFPAY | PROVIDERS: PCP Internal Medicine; Referring Provider Internal Medicine | DX: Z01.812 Encounter for preprocedural laboratory examination (principal); Z20.822 Contact with and (suspected) exposure to COVID-19; I10 Essential (primary) hypertension; I25.10 Atherosclerotic heart disease of native coronary artery without angina pectoris | CPT/HCPCS: 36415; 80048; 85025; 85610; 87635 ==

== ENCOUNTER 2021-07-10 07:36 | Outpatient (CLI) | payer MEDICARE, OTHER, SELFPAY ==
[2021-07-10] VITALS (16 sets, daily range): BP systolic 100–197; BP diastolic 56–88; PULSE 44–70; RESP 3–18; TEMP 36.7; O2SAT 96–98; BMI 26.6
--- NOTE | 2021-07-10 07:30 | XACV_ITS ---
Exam Room: 2 Ht: 178 cm Wt: 84 kg BSA: 2.05 m2 Gender: Male : 1950 Exam Priority: Routine Procedure(s): Procedure Description: Diagnostic procedure Procedure Description: PCI procedure Procedure Description: PTCA Procedure Description: Miscellaneous Procedure Description: ACT Procedure Description: Coronary Angiography Diagnostic Cath Status: Elective Diagnostic Findings * No significant disease noted in the Left Main, Left Anterior Descending, or Circumflex coronary arteries. Mid LAD has a patent prior stent Proximal RCA has 30 to 40% stenosis. * Large sized diagonal artery has ostial to proximal 70 %stenosis. * INDICATION: Chest pain/ abnormal stress test. * 1st Diagonal: obstructive 70% stenosis, NATALIE: 3 flow. * Coronary angiography shows right dominance. PCI Status: Elective PCI Indication: Other Interventional Findings * PROCEDURE DETAIL: We engaged left main artery with XB 3.5 guide catheter. We used 0.014 run-through guidewire to cross diagonal lesion. It was dilated with 2.5 x 12 mm semicompliant balloon. This expanded the stenotic area very well. Given the ostial diagonal artery lesion we decided not to put a stent as it could impinge on LAD. At this time final angiogram was performed that showed no significant stenosis and TIMI3 flow. We removed guide catheter and guide wire. Patient left the slab off mill tender in a stable condition. . Conclusions 1. No significant disease noted in the Left Main, Left Anterior Descending, or Circumflex coronary arteries. Mid LAD has a patent prior stent Proximal RCA has 30 to 40% stenosis. 2. Severe proximal diagonal stenosis s/p successful revascularization with balloon angioplasty. Recommendations * Aspirin and Plavix for atleast 1 year. * High intensity statin therapy. * Outpatient cardiology follow up in 4 weeks. Interventional RX Recommendation: PCI w/o planned CABG Diagnostic RX Recommendation: PCI w/o planned CABG Anticoagulation: Heparin Pressures Phase:Rest AO : 132 / 65 ( 90 ) @ 9:49:00 AM 105 / 70 ( 87 ) @ 9:51:00 AM 120 / 57 ( 80 ) @ 10:11:00 AM Clinical Evaluation EBL: 5mL-10mL Procedural Details Procedure Consent Obtained. Pre-Procedure Time Out. Identified patient by full name and date of as verbalized by the patient/guarantor. Does the consent match the physician's order: Yes. Accurate & Complete Informed Consent: Yes. Inpatient/Outpatient History & Physical on Chart: Yes. If H&P is completed, is and addenduem needed: N/A; If yes, is the addendum complete: N/A. Visualize and Verify Site with Patient/Guarantor: N/A. Relevant Radiology Images available: N/A. Pre-op teaching completed and patient verbalized understanding. The risks, benefits, and alternatives of sedation and/or procedure were discussed by physician. The patient agrees to continue. Procedure started. Admit Source: Out Patient. [facility] Clinical Fraility Score: 3: Managing Well. 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 Chest Pain Symptom Assessment: Atypical Angina. Correct patient, site and procedure confirmed by cath team. Current diagnosis: Chest Pain, Positive stress test. PERRLA. Strong, equal hand brim and crown presser bilaterally. Lungs clear x 5 lobes. IV Site on Arrival: 20 gauge in the right anticubital. IV Fluids: 0.9% NaCl at KVO. 0 mL infused prior to slab off mill tender. Pre Procedural Pulses: bilateral radial was 3+. Pre Procedural Pulses: right dorsalis pedis was 3+. Pre Procedural Pulses: left dorsalis pedis was 1+. Oxygen started at 2liters/min via nasal canula. right groin was prepped with chloroprep then draped in the usual sterile fashion. right radial was prepped with chloroprep then draped in the usual sterile fashion. Baseline sample Acquired. HR: 59 BPM. Physician notified. Physician arrived. Physician scrubbed in. Lidocaine 1% infiltrated to the right radial. Arterial access obtained. A 5 sudanese TIG catheter in over wire. Multiple views taken of left coronary artery. Catheter redirected to the RCA. Multiple views taken of right coronary artery. Physician review of cine films. Catheter out. Patient's family updated. 6 sudanese XB 3.5 guide catheter was inserted over the wire. Runthrough guidewire was advanced through the guide catheter to the distal LAD. Second Runthrough guidewire was advanced through the guide catheter past ostial lesion in the diaganol. Inflation number : 1 A AB TREK 2.50X12 RX BALLOON was prepped and advanced across the Ostial Diagonal , then inflated to 4 MICHELLE for 0:09 seconds. Inflation number: 2 The AB TREK 2.50X12 RX BALLOON was reinflated across the Ostial Diagonal, to 7 MICHELLE for 0:15 seconds. Inflation number: 3 The AB TREK 2.50X12 RX BALLOON was reinflated across the Ostial Diagonal, to 7 MICHELLE for 0:12 seconds. Inflation number: 4 The AB TREK 2.50X12 RX BALLOON was reinflated across the Ostial Diagonal, to 12 MICHELLE for 0:27 seconds. Balloon out. Angiography performed. Wires out. Angiography performed. Guide catheter out. ACT drawn. Results 201 seconds. Therapeutic limits - pre-heparin administration 90-150 seconds and monitoring heparin during a vascular procedure >250 seconds. A TR Band was successful obtaining hemostatsis at the Right Radial artery insertion site. Post Procedure: Pulses reassessed and unchanged. PERRLA. Strong, equal hand brim and crown presser bilaterally. No VTE prophylaxis required. Medication's Wasted: Lidocaine 1% = 18 mL. Medication's Wasted: Nitro = 49.8 mg. Medication's Wasted: Heparin = 1000 u. Medication's Wasted: Other = Fentanyl 100 mcg. Total IV fluids: 63 mL. PCI Indication: CAD (without ischemic symptoms). Post-op diagnosis: Obstructive CAD. Complications: none. Estimated blood loss: 5mL-10mL. Responsiveness - Normal response to verbal stimuli; alert and oriented, PERRLA. Airway - Unaffected, no intervention required; spontaneous ventilation. Circulation: W/N/L, pulses unchanged. Nausea/Vomiting: No. Procedure completed. Patient transferred by wheelchair to CPRU. Vital chart was stopped. Access Site Site: Right Radial artery Sheath Size: 6 Fr Hemostasis Method: TR Band Hemostasis Success: Successful Procedure Medications Start: 8:44 AM Stop: 8:44 AM Medication: Versed Amount: 1 mg Route: I.V. Start: 8:45 AM Stop: 8:45 AM Medication: Versed Amount: 1 mg Route: I.V. Start: 8:48 AM Stop: 8:48 AM Medication: Nitrogylcerin Amount: 200 mcg Route: I.A. Start: 8:48 AM Stop: 8:48 AM Medication: Versed Amount: 1 mg Route: I.V. Start: 8:49 AM Stop: 8:49 AM Medication: Heparin Amount: 5000 units Route: I.V. Start: 8:53 AM Stop: 8:53 AM Medication: Versed Amount: 1 mg Route: I.V. Start: 9:13 AM Stop: 9:13 AM Medication: Heparin Amount: 5000 units Route: I.V. I, the attending physician, have reviewed and verified all procedure medications. Yes, all medications given per verbal order History/Risk Factors Hypertension: Yes Dyslipidemia: Yes Peripheral Arterial Disease (PAD): No Myocardial Infarction (VT): Yes Obesity: No Renal Disease: No Tobacco Use: Never Prior Interventions PCI: Yes CABG: No Valve Surgery: No Date of PCI: 02/17/2019 Report Signatures Finalized by Abraham Prabhakar MD on 07/17/2021 12:16 PM
[2021-07-10] MEDS: diphenhydrAMINE 50 mg Capsule PO (07:40)
--- NOTE | 2021-07-10 08:38 | W.PM.OPSUD ---
Surgery/Procedure H&P Update DATE OF PROCEDURE: July 10, 2021 DATE H&P PERFORMED: 07/01/21 H&P UPDATE INFORMATION: I have reviewed H&P completed within last 30 days, I have examined patient prior to procedure and No changes to prior documentation PREOP DIAGNOSIS: Chest pain/ abnormal stress test PRIMARY INDICATION FOR PROCEDURE: Chest pain/abnormal stress test PLANNED PROCEDURE: Operation Date: 07/10/21 08:30 Proposed Procedures p Cardiac Catheterization(Left) - Abraham Prabhakar M.D Possible percutaneous coronary intervention PATIENT REASSESSED PRIOR TO SEDATION, WITH NO CHANGE NOTED: Yes PHYSICAL EXAM: alert, oriented x 3, clear to auscultation bilaterally and regular rate & rhythm AIRWAY EVAL/ANESTHESIA PLAN: ASA III, Monitored Anesthesia, Local Anesthesia, Risks, benefits & alternatives of sedation and/or procedure discussed and Patient agrees to continue as planned
--- NOTE | 2021-07-10 10:51 | PC.NURSE ---
recovery pt returned to cpru post lhc. tr band on right wrist, no bleeding or hematoma noted. distal pulse palpable. pt and family at bedside educated on restrictions of right wrist and both acknowledged understanding. pt complains of no pain. pt placed on monitor and will be monitored per protocol. plan to dc at 6 hrs at this time per
--- NOTE | 2021-07-10 14:15 | PM.SDS ---
Short Stay Summary Providers Date of Admit/Discharge: 07/10/21 Attending Provider: Abraham Prabhakar M.D Primary Care Provider: Nas Malagon DO Chief Complaint: Chest pain/ abnormal stress test HPI History of Present Illness Selwyn Quintanilla is a 71 year old male with past medical history of coronary artery disease and hypertension who had chest pain symptoms. Lexiscan showed ischemia and plan is to perform coronary angiogram. Review of Systems Const: Denies: fever(s) or fatigue Eyes: Denies: change in vision ENMT: Denies: nasal congestion or post nasal drip Card: Denies: chest pain, palpitations, irregular heart rhythm, swelling of feet/ankles, lightheadedness, dyspnea on exertion or orthopnea Resp: Denies: dyspnea, productive cough or non-productive cough GI: Denies: nausea, vomiting or heartburn : Denies: difficulty urinating Musc: Reports: neck pain, back pain and joint pain Skin/Breast: Denies: rash or pruritus Neuro: Denies: headache(s) or dizziness Psych: Denies: anxiety, depression, suicidal ideation or homicidal ideation Endo: Denies: polyuria Nelson/Lymph: Reports: easy bruising and easy bleeding Home Meds/Allergies Home Medications and Allergies Home Medications Medication Instructions Recorded Confirmed Type pantoprazole 40 mg tablet,delayed 40 mg PO DAILY@0700 07/26/19 07/17/21 History release acetaminophen 500 mg tablet 500 mg PO Q6H PRN 01/29/20 07/17/21 History (Tylenol Extra Strength) mecobalamin (vitamin B12) 1,000 1,000 mcg PO DAILY@0700 01/29/20 07/17/21 History mcg chewable tablet (B12 Active) aspirin 81 mg tablet,delayed 81 mg PO DAILY@0700 04/03/20 07/17/21 History release Allergies Allergy/AdvReac Type Severity Reaction Status Date / Time No Known Allergies Allergy Verified 07/17/21 08:19 PFSH Acute PFSH: Medical History ASHD (arteriosclerotic heart disease) Bilateral renal stones Dyslipidemia HTN (hypertension) Myocardial infarction Surgical History S/P PTCA (percutaneous transluminal coronary angioplasty) Family History Father , at age 94 COVID-19 Mother , at age 92 No problems noted. 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 [] NECK: No jugular vein distension. [] HEENT: No cyanosis. No icterus. No pallor. [] HEART: Regular S1 and S2. No murmur, rub or gallop. [] LUNGS: Clear to auscultate bilaterally. [] ABDOMEN: Soft, nontender and nondistended. Positive bowel sounds. No guarding, rebound or tenderness. [] CENTRAL NERVOUS SYSTEM: Grossly nonfocal. [] EXTREMITIES: Lower extremities with 1+ edema bilaterally. Pulses palpable in the lower extremities, both dorsalis pedis and posterior tibial. [] Hospital Course Admission Diagnoses Chest pain/abnormal stress test Hospital Course Selwyn Quintanilla is a 71 year old male with past medical history of coronary artery disease and hypertension who had chest pain symptoms. Lexiscan showed ischemia and plan is to perform coronary angiogram. Patient had severe ostial large diagonal artery stenosis. He underwent successful revascularization with balloon angioplasty. Given location of the stenosis we decided not to stented as result was good with balloon angioplasty. Patient stayed in hospital without any complications and was discharged home in a stable condition. 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 Routin e Exams 07/10/21 07:30 Taken Discharge Plan Discharge Patient Disposition: Home Prescriptions: No Action B12 Active 1,000 mcg tablet,chewable 1,000 mcg PO DAILY@0700 0RF acetaminophen [Tylenol Extra Strength] 500 mg tablet 500 mg PO Q6H PRN (Reason: Pain) 0RF pantoprazole 40 mg tablet,delayed release (DR/EC) 40 mg PO DAILY@0700 0RF atorvastatin 80 mg tablet See Rx Instructions .ROUTE .COMPLEX Qty: 90 3RF Dose Instruction: TAKE 1 TABLET BY MOUTH EVERYDAY AT BEDTIME Rx Instructions: TAKE 1 TABLET BY MOUTH EVERYDAY AT BEDTIME clopidogrel 75 mg tablet See Rx Instructions .ROUTE .COMPLEX Qty: 90 3RF Dose Instruction: TAKE 1 TABLET BY MOUTH EVERY DAY AT 7AM Rx Instructions: TAKE 1 TABLET BY MOUTH EVERY DAY AT 7AM amlodipine 10 mg tablet 10 mg PO DAILY@0700 Qty: 90 3RF metoprolol tartrate 25 mg tablet 12.5 mg PO BID Qty: 90 3RF valsartan 160 mg tablet 160 mg PO DAILY Qty: 90 3RF aspirin [Aspir-81] 81 mg Tablet,Delayed Release (Dr/Ec) 81 mg PO DAILY@0700 0RF Discharge Orders: Discharge Order (Routine); Ordered 07/10/21 Ordered By: Abraham Prabhakar Referrals: Abraham Prabhakar M.D [Physician] - 09/03/21 3:45 pm Petty Corbin FNP [Nurse Practitioner] - 07/17/21 10:15 am Diet: Cardiac Patient Instructions: Coronary Angioplasty (DC), Moderate Sedation (DC), After Radial Heart Catheterization (GEN) Activity Restrictions/Additional Instructions: Please do not lift more than 5 pounds of weight for the next 5 days Discharge Date/Time: 07/10/21 15:00 Attestations Medical Necessity Statement*: Care not expected to cross 2 midnights. Time Spent in Patient Care*: greater than 30 min Quality Metrics Clinical Quality Measures: [ No reported AMI, CVA or VTE this stay] Coding Level of Care Code Acute Optical Manufacturing Technician for Moshe Darby
== END 2021-07-10 15:00 | disposition home or self-care (01) ==
PROVIDERS: PCP Internal Medicine; Visit Provider Internal Medicine
DX: R07.9 Chest pain, unspecified (principal); I65.23 Occlusion and stenosis of bilateral carotid arteries; R94.39 Abnormal result of other cardiovascular function study; I25.10 Atherosclerotic heart disease of native coronary artery without angina pectoris; I10 Essential (primary) hypertension; Z79.82 Long term (current) use of aspirin; E78.5 Hyperlipidemia, unspecified; I25.2 Old myocardial infarction
CPT/HCPCS: 36415; 85347; 92920; 93454; C1725; C1769; C1887; C1894; J1644; J2250; J3010; J3490; J7030; Q0163; Q9967

== ENCOUNTER → 2021-07-17 09:04 | Outpatient (BNVA) | payer MEDICARE, OTHER, SELFPAY | PROVIDERS: PCP Internal Medicine; Visit Provider Nurse Practitioner Family | DX: I25.10 Atherosclerotic heart disease of native coronary artery without angina pectoris (principal); I25.2 Old myocardial infarction; Z79.82 Long term (current) use of aspirin | CPT/HCPCS: 36415; 80048; 99213; 99214 ==

== ENCOUNTER → 2021-09-09 12:34 | Outpatient (BNVA) | payer MEDICARE, OTHER, SELFPAY | PROVIDERS: PCP Internal Medicine; Visit Provider Internal Medicine Cardiovascular Disease | DX: Z09 Encounter for follow-up examination after completed treatment for conditions other than malignant neoplasm (principal); Z98.61 Coronary angioplasty status; I10 Essential (primary) hypertension; E78.5 Hyperlipidemia, unspecified; I25.2 Old myocardial infarction; I25.10 Atherosclerotic heart disease of native coronary artery without angina pectoris | CPT/HCPCS: 99213 ==

== ENCOUNTER → 2021-12-03 11:46 | Outpatient (BNVA) | payer MEDICARE, OTHER, SELFPAY | PROVIDERS: PCP Internal Medicine; Visit Provider Internal Medicine Cardiovascular Disease | DX: I10 Essential (primary) hypertension (principal); E78.5 Hyperlipidemia, unspecified; I25.2 Old myocardial infarction; I25.10 Atherosclerotic heart disease of native coronary artery without angina pectoris; Z98.61 Coronary angioplasty status; N52.9 Male erectile dysfunction, unspecified | CPT/HCPCS: 99213 ==

== ENCOUNTER → 2022-03-09 14:45 | Outpatient (BNVA) | payer MEDICARE, OTHER, SELFPAY | PROVIDERS: PCP Internal Medicine; Visit Provider Nurse Practitioner Family | DX: R07.9 Chest pain, unspecified (principal) | CPT/HCPCS: 99214 ==

== ENCOUNTER 2022-04-20 06:46 | Outpatient (CLI) | payer MEDICARE, OTHER, SELFPAY ==
[2022-04-20 07:13] VITALS: BMI 27.2
--- NOTE | 2022-04-20 08:03 | NMCV_ITS ---
NM yancy perf SPECT r/s* [id number] Selwyn Quintanilla Age: 71 Gender: M : 1950 Exam Date: 04/20/2022 08:28 Ordering Phys: Nas Malagon DO Technologist: KARISHMA Cruz Exam Location: [facility] Indications: CHEST PAIN STRESS TEST Please see separate stress test report in [facility] for full findings IMAGE PROTOCOL Rest/Stress 1 Lexiscan Day Radiopharmaceutical Dose (mCi) Administration Site Administered by Rest: Tc-99m 10.9 IV KARISHMA Navarro Sestamibi Stress:Tc-99m 32.5 IV KARISHMA Navarro Sestamibi Rest: 20-Apr-2022 60 Discovery 630 Stress: 20-Apr-2022 30 Discovery 630 0.4mg Lexiscan. Images obtained in supine and prone position. SPECT RESULTS Technical Quality: Excellent Raw Data Analysis: Normal Image Corrections: No attenuation or motion correction applied Summed Stress Score: 6 Summed Rest Score: 0 Summed Difference Score: 6 PERFUSION FINDINGS Moderate area of moderately decreased tracer uptake was noted in the mid and apical anterior, mid anterolateral and apical lateral regions. Significant reversibility was noted in these regions at rest. FUNCTIONAL RESULTS (calculated via Gated SPECT) Stress Image LV EF (%): 67 Stress EDV (mL):131 TID: 1.05 Stress ESV (mL):43 FUNCTIONAL FINDINGS: Segmental wall motion analysis revealing no gross wall motion abnormalities. IMPRESSIONS 1. Myocardial perfusion imaging revealing moderate area of reversible defect in the mid anterolateral, apical lateral, mid and apical anterior regions, suggesting ischemia predominantly in the distribution of the left circumflex artery with some involvement of the left anterior descending artery. 2. Normal LV ejection fraction of 67%. 3. LV wall motion analysis revealing no gross wall motion abnormalities. 4. Near normal LV volume Compared to the study from 06/24/2021, the ischemia appears to be more severe and is more involvement of the circumflex territory. Dr Lotus Lovett MD [facility] (Electronically Signed) Final Date: 20 April 2022 14:02 S
--- NOTE | 2022-04-20 08:03 | ECG_ITS ---
[facility] Test Date: 2022-04-20 Pat Name: Selwyn Quintanilla Department: Room: Gender: Male Deliverer Pharmacy: : 1950 Requested By: Nas Reyna Order Number: [id number] Neida MD: Lotus Lovett M.D. Interpretive Statements NAME OF STUDY: LEXISCAN SESTAMIBI STRESS TEST INDICATION: Chest Pain, PROCEDURE: At the baseline, the EKG revealed normal sinus rhythm with frequent PVCs. The baseline heart was 79 bpm with a blood pressue of 153/90 mm of Hg Lexiscan was infused over a period of 20 seconds. A total of 0.4 milligrams of Lexiscan was infused. The stress phase was continued for a total of 5 minutes. Heart rate at the end of the stress phase was 86 bpm with a blood pressure 158/79 mm of Hg. The EKG at the peak infusion revealed almost complete disappearance of the PVCs. Sestamibi was injected 20 seconds after the Lexiscan infusion. Heart rate at the end of the recovery phase was 87 bpm with a blood pressure of 170/81 mm of Hg. CONCLUSION: 1. No significant EKG changes with the LexiScan infusion 2. No LexiScan induced chest pain or cardiac arrhythmia 3. Normal blood pressure and heart rate response 4. Sestamibi/sestamibi perfusion scan pending; see separate report. Electronically Signed On 04-24-2022 11:40:08 MACHINE HAND by Lotus Lovett M.D. [email or web address]
[2022-04-20] MEDS: regadenoson 0.4 Mg/5 ml Syringe IVP (09:07)
[2022-04-20 09:24] VITALS: BP 170/81; PULSE 87
== END 2022-04-20 06:47 | disposition home or self-care (01) ==
LOC: CDL 06:49
PROVIDERS: PCP Internal Medicine; Visit Provider Nurse Practitioner Family
DX: R07.9 Chest pain, unspecified (principal)
CPT/HCPCS: 36415; 78452; 93017; 96374; A9500; J2785

== ENCOUNTER → 2022-04-27 13:51 | Outpatient (BNVA) | payer MEDICARE, OTHER, SELFPAY | PROVIDERS: PCP Internal Medicine; Visit Provider Internal Medicine | DX: R07.9 Chest pain, unspecified (principal); I10 Essential (primary) hypertension; E78.5 Hyperlipidemia, unspecified; I25.10 Atherosclerotic heart disease of native coronary artery without angina pectoris; R94.39 Abnormal result of other cardiovascular function study | CPT/HCPCS: 99214 ==

== ENCOUNTER 2022-05-01 10:31 | Observation (INO) | payer MEDICARE, OTHER, SELFPAY ==
[2022-05-01] VITALS (36 sets, daily range): BP systolic 107–185; BP diastolic 54–93; PULSE 49–88; RESP 8–28; TEMP 36.2–37; O2SAT 91–99; BMI 27.6
--- NOTE | 2022-05-01 06:00 | XACV_ITS ---
Exam Room: 2 Ht: 178 cm Wt: 88 kg BSA: 2.10 m2 Gender: Male : 1950 Any Known Allergies: No known allergies Exam Priority: Routine Procedure(s): Procedure Description: Diagnostic procedure Procedure Description: PCI procedure Procedure Description: Coronary IVUS Procedure Description: Drug Eluting Coronary Stent Procedure Description: PTCA Procedure Description: Miscellaneous Procedure Description: ACT Procedure Description: Coronary Angiography Procedure Description: Pressure Wire Diagnostic Cath Status: Elective Diagnostic Findings * INDICATION: Patient with prior history of CAD has been having on and off chest pain symptoms that are worsening. He underwent stress test that showed ischemia in left circumflex artery territory. Plan for coronary angiogram with possible percutaneous coronary intervention. * Left Main has no significant disease. * Right Coronary Artery has 30% proximal vessel stenosis. * Proximal Circumflex: obstructive eccenteric 70% stenosis, NATALIE: 3 flow. * Left Anterior Descending has no disease. * Coronary angiography shows right dominance. PCI Status: Elective PCI Indication: Other Interventional Findings * PROCEDURE DETAIL: Left circumflex artery proximally had borderline severe stenosis. Stress test was showing ischemia in this territory. We initially attempted to perform IFR after engaging the left main artery with XB 3.0 guide catheter. iFR had tracing errors and difficulty normalizing requiring wire to be removed and readvanced. Inconsistent readings with each attempt at advancing the wire were obtained. We decided to perform IVUS given discrepancy between IFR readings and significant ischemia seen on stress testing in this area. 0.014 cougar wire was advanced into distal vessel. iFR was performed that showed MLA of 3.2 mm2 in proximal LCx. At this time, we decided to perform PCI. We predilated the stenosis with 2.5 x 12 mm semicompliant balloon. This was followed by placement of 3.0 x 18 mm drug-eluting stent. At this time we again performed IVUS that showed underexpansion of the proximal part of stent. This was postdilated by 3.0 x 8 mm NC balloon. Final angiogram showed excellent stent expansion, no residual stenosis and NATALIE-3 flow. Guidewire and guide catheter removed. 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 * Proximal Circumflex: 70% stenosis treated with a AB TREK 2.50X12 RX BALLOON, MARITZA Lanier HARRY 3.0X18 HANSEL, and MDT RAKESH EUPHORA RX [id number] BALLOON. 0% residual stenosis, NATALIE: 3 flow. Conclusions 1. Severe proximal left circumflex artery stenosis s/p successful revascularization with HANSEL x1.. 2. Proximal Circumflex was treated with a Balloon, Drug Eluting Stent, and Balloon. Recommendations * Continue dual antiplatelet therapy with aspirin and Plavix. * High intensity statin therapy. * Outpatient cardiology followup in 4 weeks. Interventional RX Recommendation: PCI w/o planned CABG Diagnostic RX Recommendation: PCI w/o planned CABG Anticoagulation: Heparin Pressures Phase:Rest AO : 96 / 62 ( 79 ) @ 8:19:00 AM 95 / 65 ( 81 ) @ 8:19:00 AM 102 / 61 ( 80 ) @ 8:22:00 AM 115 / 52 ( 76 ) @ 8:27:00 AM 115 / 53 ( 74 ) @ 8:29:00 AM 117 / 54 ( 79 ) @ 8:33:00 AM 115 / 54 ( 76 ) @ 8:37:00 AM 93 / 56 ( 74 ) @ 8:44:00 AM 137 / 59 ( 86 ) @ 8:50:00 AM Clinical Evaluation EBL: 5mL-10mL Procedural Details Procedure Consent Obtained. Pre-Procedure Time Out. Identified patient by full name and date of as verbalized by the patient/guarantor. Does the consent match the physician's order: Yes. Accurate & Complete Informed Consent: Yes. Inpatient/Outpatient History & Physical on Chart: Yes. If H&P is completed, is and addenduem needed: No; If yes, is the addendum complete: N/A. Visualize and Verify Site with Patient/Guarantor: N/A. Relevant Radiology Images available: Yes. Pre-op teaching completed and patient verbalized understanding. The risks, benefits, and alternatives of sedation and/or procedure were discussed by physician. The patient agrees to continue. Procedure started. [facility] Clinical Fraility Score: 3: Managing Well. Current Diagnosis : Chest Pain. Project Manager/Team Coach Indications: Suspected CAD. Chest Pain Symptom Assessment: Atypical Angina. Correct patient, site and procedure confirmed by cath team. Current diagnosis: Chest Pain. IV Site on Arrival: 18 gauge in the right anticubital. PERRLA. Strong, equal hand tongue carrier bilaterally. Lungs clear x 5 lobes. IV Fluids: 0.9% NaCl at KVO. 0 mL infused prior to electroplating laborer. Pre Procedural Pulses: bilateral dorsalis pedis was 2+. Pre Procedural Pulses: bilateral posterior tibial was 2+. Pre Procedural Pulses: bilateral radial was 3+. Oxygen started at 2liters/min via nasal canula. right groin was prepped with chloroprep then draped in the usual sterile fashion. right radial was prepped with chloroprep then draped in the usual sterile fashion. Physician notified. Baseline sample Acquired. HR: 67 BPM. Physician arrived. Physician scrubbed in. Immediate Pre-Procedure Time Out. Correct Patient: Yes; Correct Procedure: Yes; Correct Site: Yes; Correct Patient Position: Yes; Correct Supplies: Yes; Dried Flammable Prep: Yes; Blood Products Available: N/A;. Lidocaine 1% infiltrated to the right radial. Arterial access obtained. A 5 gabonese TIG catheter in over wire. Multiple views taken of right coronary artery. Catheter redirected to the LCA. Multiple views taken of left coronary artery. Physician review of cine films. Catheter removed over the exchange wire. 6 gabonese XB 3.5 guide catheter was inserted over the wire. FFR guidewire was advanced through the guide catheter to lesion in the prox Circ. Fractional flow reserve measurements obtained. IFR Results: 0.95. [place] guidewire was advanced through the guide catheter to lesion in the prox Circ. IVUS catheter inserted OTW and advanced to the prox CX. IVUS measurements obtained. IVUS catheter removed OTW. Inflation number : 1 A AB TREK 2.50X12 RX BALLOON was prepped and advanced across the Prox CX , then inflated to 8 MICHELLE for 0:21 seconds. Inflation number: 2 The AB TREK 2.50X12 RX BALLOON was reinflated across the Prox CX, to 10 MICHELLE for 0:17 seconds. Inflation number: 3 The AB TREK 2.50X12 RX BALLOON was reinflated across the Prox CX, to 10 MICHELLE for 0:13 seconds. Balloon out. Patient's family updated. Inflation Number : 4 A MDT R HARRY 3.0X18 HANSEL -Lot Number# _[id number] EXP: 07/25/2024 was prepped and advanced across the Prox CX. The stent was deployed at 12 MICHELLE for 0:24 seconds. Stent balloon out over wire. Results checked. ACT drawn. Results OUT OF RANGE seconds. Therapeutic limits - pre-heparin administration 90-150 seconds and monitoring heparin during a vascular procedure >250 seconds. Results checked. IVUS catheter inserted OTW and advanced to the prox CX. IVUS measurements obtained. IVUS catheter removed OTW. Inflation number : 5 A MDT NC EUPHORA RX [id number] BALLOON was prepped and advanced across the Prox CX , then inflated to 14 MICHELLE for 0:16 seconds. Inflation number: 6 The MDT NC EUPHORA RX [id number] BALLOON was reinflated across the Prox CX, to 12 MICHELLE for 0:14 seconds. Balloon out. Results checked. Wire out. ACT drawn. Results 348 seconds. Therapeutic limits - pre-heparin administration 90-150 seconds and monitoring heparin during a vascular procedure >250 seconds. Guide catheter out. A TR Band was successful obtaining hemostatsis at the Right Radial artery insertion site. Post Procedure: Pulses reassessed and unchanged. PERRLA. Strong, equal hand tongue carrier bilaterally. No VTE prophylaxis required. Complications: None. Estimated blood loss: 5mL-10mL. Responsiveness - Normal response to verbal stimuli; alert and oriented, PERRLA. Total IV fluids: 67 mL. Medication's Wasted: Lidocaine 1% = 2 mL. Medication's Wasted: Nitro = 49.6 mg. Medication's Wasted: Heparin = 1000 units. Medication's Wasted: Other = Versed 1 mg. Airway - Unaffected, no intervention required; spontaneous ventilation. Circulation: W/N/L, pulses unchanged. Nausea/Vomiting: No. Procedure completed. Vital chart was stopped. Patient transferred by wheelchair to CPRU. Access Site Site: Right Radial artery Sheath Size: 6 Fr Hemostasis Method: TR Band Hemostasis Success: Successful Procedure Medications Start: 8:12 AM Stop: 8:12 AM Medication: Versed Amount: 1 mg Route: I.V. Start: 8:14 AM Stop: 8:14 AM Medication: Versed Amount: 1 mg Route: I.V. Start: 8:16 AM Stop: 8:16 AM Medication: Nitrogylcerin Amount: 200 mcg Route: I.A. Start: 8:18 AM Stop: 8:18 AM Medication: Heparin Amount: 5000 units Route: I.V. Start: 8:27 AM Stop: 8:27 AM Medication: Versed Amount: 1 mg Route: I.V. Start: 8:28 AM Stop: 8:28 AM Medication: Heparin Amount: 3000 units Route: I.V. Start: 8:47 AM Stop: 8:47 AM Medication: Heparin Amount: 2000 units Route: I.V. Start: 8:50 AM Stop: 8:50 AM Medication: Nitrogylcerin Amount: 200 mcg Route: I.A. Start: 8:59 AM Stop: 8:59 AM Medication: Plavix Amount: 300 mg Route: P.O. I, the attending physician, have reviewed and verified all procedure medications. Yes, all medications given per verbal order History/Risk Factors Hypertension: Yes Dyslipidemia: Yes Peripheral Arterial Disease (PAD): No Myocardial Infarction (NC): Yes Obesity: No Renal Disease: No Prior Interventions PCI: Yes CABG: No Valve Surgery: No Date of PCI: 07/10/2021 Report Signatures Finalized by Abraham Prabhakar MD on 05/02/2022 11:11 PM
[2022-05-01] MEDS: diphenhydrAMINE 50 mg Capsule PO (06:23)
[2022-05-01 06:50] LABS: Basophils # 0.1 10^3/uL (0.0-0.1); Basophils % 1.5 %; Eosinophils # 0.3 10^3/uL (0.0-0.8); Hematocrit 43.2 % (42.0-52.0); Hemoglobin 13.9 g/dL (11.7-16.6); Lymphocytes # 1.4 10^3/uL (0.8-4.8); Lymphocytes % 23.8 %; Mean Corpuscular HGB Conc 32.2 g/dL (30.0-36.0); Mean Corpuscular Hemoglobin 28.3 pg (28.0-34.0); Mean Corpuscular Volume 87.8 fl (80-94); Mean Platelet Volume 10.8 fL (7.4-10.4); Monocytes # 0.8 10^3/uL (0.2-0.9); Neutrophils # 3.37 10^3/uL (1.8-7.7); Neutrophils % 56.2 %; Nucleated Red Blood Cells % 0 %; Platelet Count 208 10^3/cmm (130-400); Red Blood Count 4.92 10^6/uL (4.1-5.3); Red Cell Distribution Width 13.1 % (12.1-15.1)
[2022-05-01 06:58] LABS: Anion Gap 12.7 (5-19); Blood Urea Nitrogen 13 mg/dL (8-23); Calcium 8.7 mg/dL (8.5-10.5); Carbon Dioxide 27 mmol/L (22-29); Chloride 104 mmol/L (98-107); Glucose 106 mg/dL (65-115); Osmolality Calculated 291 mOsm/kg (285-295); Potassium 3.7 mmol/L (3.5-5.1); Sodium 140 mmol/L (136-145)
--- NOTE | 2022-05-01 08:11 | W.PM.OPSUD ---
Surgery/Procedure H&P Update DATE OF PROCEDURE: May 01, 2022 DATE H&P PERFORMED: 04/27/22 H&P UPDATE INFORMATION: I have reviewed H&P completed within last 30 days, I have examined patient prior to procedure and No changes to prior documentation PREOP DIAGNOSIS: Chest pain/ abnormal stress test PRIMARY INDICATION FOR PROCEDURE: Chest pain/ abnormal stress test PLANNED PROCEDURE: Operation Date: 05/01/22 07:00 Proposed Procedures p Left heart cath 52342,I94.39(Left) - Abraham Prabhakar M.D Possible percutaneous coronary intervention PATIENT REASSESSED PRIOR TO SEDATION, WITH NO CHANGE NOTED: Yes PHYSICAL EXAM: alert, oriented x 3, clear to auscultation bilaterally and regular rate & rhythm AIRWAY EVAL/ANESTHESIA PLAN: normal airway, ASA III, Local Anesthesia, Risks, benefits & alternatives of sedation and/or procedure discussed and Patient agrees to continue as planned ADDITIONAL INFORMATION: Moderate sedation
--- NOTE | 2022-05-01 09:45 | SUR.EXTENDED ---
Patient ambulated to the restroom and then back to the chair for breakfast.
[2022-05-01] MEDS: sodium chloride 0.9% 1,000 ML 100 ML IV (11:42)
--- NOTE | 2022-05-01 17:48 | PM.SDS ---
Short Stay Summary Providers Date of Admit/Discharge: 05/10/22 Attending Provider: Abraham Prabhakar M.D Primary Care Provider: Nas Malagon DO Chief Complaint: I94.39 HPI History of Present Illness Selwyn Quintanilla is a 71 year old male with past medical history of coronary artery disease, hyperlipidemia, hypertension who had recent stress test for chest pain. It was abnormal. He underwent coronary angiogram today that showed a severe left circumflex artery stenosis Review of Systems Const: Denies: fatigue Card: Denies: palpitations, irregular heart rhythm, swelling of feet/ankles, lightheadedness, pre-syncope, dyspnea on exertion, orthopnea or leg pain with exertion Resp: Denies: dyspnea, productive cough or non-productive cough Musc: Reports: neck pain and back pain Neuro: Denies: headache(s) or dizziness Psych: Denies: anxiety, depression, suicidal ideation or homicidal ideation Nelson/Lymph: Denies: easy bruising or easy bleeding Home Meds/Allergies Home Medications and Allergies Home Medications Medication Instructions Recorded Confirmed Type acetaminophen 500 mg tablet 500 mg PO Q6H PRN Pain 01/29/20 05/08/22 History (Tylenol Extra Strength) mecobalamin (vitamin B12) 1,000 1,000 mcg PO DAILY@0700 01/29/20 05/08/22 History mcg chewable tablet (B12 Active) aspirin 81 mg tablet,delayed 81 mg PO DAILY@0700 04/03/20 05/08/22 History release calcium carbonate 600 mg calcium 600 mg PO BID 12/03/21 05/08/22 History (1,500 mg) tablet magnesium 250 mg tablet 250 mg PO DAILY 12/03/21 05/08/22 History pantoprazole 40 mg tablet,delayed 40 tab PO DIRECTED 12/03/21 05/08/22 History release Allergies Allergy/AdvReac Type Severity Reaction Status Date / Time No Known Allergies Allergy Verified 05/08/22 11:24 PFSH Acute PFSH: Medical History ASHD (arteriosclerotic heart disease) Bilateral renal stones Dyslipidemia Erectile dysfunction HTN (hypertension) Myocardial infarction Surgical History S/P PTCA (percutaneous transluminal coronary angioplasty) Family History Father , at age 94 COVID-19 Mother , at age 92 No problems noted. 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 [] NECK: No jugular vein distension. [] HEENT: No cyanosis. No icterus. No pallor. [] HEART: Regular S1 and S2. No murmur, rub or gallop. [] LUNGS: Clear to auscultate bilaterally. [] CENTRAL NERVOUS SYSTEM: Grossly nonfocal. [] EXTREMITIES: Lower extremities with 1+ edema bilaterally. Pulses palpable in the lower extremities, both dorsalis pedis and posterior tibial. [] Hospital Course Hospital Course Patient underwent successful revascularization with HANSEL x1. Patient was stable and wanted to go home. He was discharged in stable condition. 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 Routin e Exams 05/01/22 06:00 Ordered Basic Metabolic P [place] AM [facility] Lab 05/02/22 04:00 Ordered Complete Blood Co unt w/Auto AM LABS Lab 05/02/22 04:00 Ordered Discharge Plan Discharge Patient Disposition: Home Condition: Stable Prescriptions: Continued B12 Active 1,000 mcg tablet,chewable 1,000 mcg PO DAILY@0700 acetaminophen [Tylenol Extra Strength] 500 mg tablet 500 mg PO Q6H PRN (Reason: Pain) pantoprazole 40 mg tablet,delayed release (DR/EC) 40 tab PO DIRECTED calcium carbonate 600 mg calcium (1,500 mg) tablet 600 mg PO BID magnesium 250 mg tablet 250 mg PO DAILY sildenafil 100 mg tablet 100 mg PO DAILY PRN (Reason: sexual activity) Qty: 10 3RF Rx Instructions: administer 30 minutes to 4 hours before activity valsartan 160 mg tablet 160 mg PO DAILY Qty: 90 3RF atorvastatin 80 mg tablet See Rx Instructions .ROUTE .COMPLEX Qty: 90 3RF Dose Instruction: TAKE 1 TABLET BY MOUTH EVERYDAY AT BEDTIME Rx Instructions: TAKE 1 TABLET BY MOUTH EVERYDAY AT BEDTIME clopidogrel 75 mg tablet See Rx Instructions .ROUTE .COMPLEX Qty: 90 3RF Dose Instruction: TAKE 1 TABLET BY MOUTH EVERY DAY AT 7AM Rx Instructions: TAKE 1 TABLET BY MOUTH EVERY DAY AT 7AM amlodipine 10 mg tablet 10 mg PO DAILY@0700 Qty: 90 3RF metoprolol tartrate 25 mg tablet 12.5 mg PO BID Qty: 90 3RF aspirin 81 mg Tablet,Delayed Release (/Ec) 81 mg PO DAILY@0700 Discharge Orders: Discharge Order (Routine); Ordered 05/01/22 Ordered By: Abraham Prabhakar Referrals: Abraham Prabhakar M.D [Physician] - Petty Corbin FNP [Nurse Practitioner] - (This follow up scheduled: Petty Corbin APN nurse [facility] [phone] appointment scheduled for following date of April ,time of 11:15 am ,after appointment with Petty will schedule follow up with ) Discharge Diet: Cardiac Discharge Activity: Increase activity as tolerated Patient Instructions: Heart Healthy Diet, Coronary Angioplasty (DC), Coronary Intravascular Stent Placement (DC), Chest Pain Stoplight, Opioid Safety, Post Angiogram Home Care Instructions Attestations Medical Necessity Statement*: Care not expected to cross 2 midnights. Time Spent in Patient Care*: less than 30 min Quality Metrics Clinical Quality Measures: [ No reported AMI, CVA or VTE this stay] Coding Level of Care Code Acute Code for Goodg Wilner
== END 2022-05-01 18:20 | disposition home or self-care (01) ==
LOC: ICU 10:32
PROVIDERS: Admitting Provider Internal Medicine; PCP Internal Medicine; Visit Provider Internal Medicine
DX: I25.10 Atherosclerotic heart disease of native coronary artery without angina pectoris (principal); R07.9 Chest pain, unspecified; R94.39 Abnormal result of other cardiovascular function study; E78.5 Hyperlipidemia, unspecified; I10 Essential (primary) hypertension; Z79.82 Long term (current) use of aspirin; I25.2 Old myocardial infarction
CPT/HCPCS: 36415; 80048; 85025; 85347; 92978; 93454; 93571; 96361; 96365; 99152; 99153; C1725; C1753; C1769; C1874; C1887; C1894; C9600; G0378; J1644; J2250; J3490; J7030; Q0163; Q9967

== ENCOUNTER → 2022-05-08 11:10 | Outpatient (BNVA) | payer MEDICARE, OTHER, SELFPAY | PROVIDERS: PCP Internal Medicine; Visit Provider Nurse Practitioner Family | DX: I25.10 Atherosclerotic heart disease of native coronary artery without angina pectoris (principal); I10 Essential (primary) hypertension | CPT/HCPCS: 80048; 99214 ==

== ENCOUNTER → 2022-06-19 09:40 | Outpatient (BNVA) | payer MEDICARE, OTHER, SELFPAY | PROVIDERS: PCP Internal Medicine; Visit Provider Internal Medicine Cardiovascular Disease | DX: I25.10 Atherosclerotic heart disease of native coronary artery without angina pectoris (principal); N52.9 Male erectile dysfunction, unspecified; N20.0 Calculus of kidney; I10 Essential (primary) hypertension; E78.5 Hyperlipidemia, unspecified; Z98.61 Coronary angioplasty status; I25.2 Old myocardial infarction; Z79.82 Long term (current) use of aspirin | CPT/HCPCS: 99213 ==

== ENCOUNTER 2022-10-30 12:33 | Outpatient (CLI) | payer MEDICARE, SELFPAY ==
--- NOTE | 2022-10-30 12:49 | CTR_ITS ---
PROCEDURE INFORMATION: Exam: CT Abdomen With Contrast Exam date and time: 10/30/2022 1:29 PM Age: 72 years old Clinical indication: Condition or disease; Kidney or ureter condition; Cyst of kidney; Patient HX: Kidney and liver cyst seen on US. PT C/O lower RT back pain x 1 year with hematuria; Additional info: Kidney cyst TECHNIQUE: Imaging protocol: Computed tomography of the abdomen with contrast. Radiation optimization: All CT scans at this facility use at least one of these dose optimization techniques: automated exposure control; mA and/or kV adjustment per patient size (includes targeted exams where dose is matched to clinical indication); or iterative reconstruction. Contrast material: OMNI 350; Contrast volume: 100 ml; Contrast route: INTRAVENOUS (IV); REPORTING DATA: Count of CT and Cardiac NM exams in prior 12 months: This patient has received [address] and 0 known cardiac nuclear medicine studies in the 12 months prior to the current study. COMPARISON: CT abdomen pelvis wo con [id number] 06/14/2017 3:22 PM RADIATION DOSE METRICS: Total DLP (mGy-cm): 611.65 FINDINGS: Coronary arteries: Mild coronary artery calcification. Liver: Stable 1 cm right hepatic cyst. Additional subcentimeter hepatic hypodensities too small to completely characterize. Gallbladder and bile ducts: Normal. No calcified stones. No ductal dilation. Pancreas: Normal without ductal dilatation. Spleen: Normal. Adrenal glands: Normal. No mass. Kidneys and ureters: Bilateral simple renal cysts are mildly increased in size from June 2017 measuring up to 3.5 cm on the right and 2.6 cm on the left. Other subcentimeter hypodensities are too small to characterize. Bilateral renal sinus cysts also present. Normal visualized ureters. Stomach and bowel: No bowel dilatation or mucosal thickening. Colonic diverticulosis without findings of diverticulitis. Intraperitoneal space: No free air, free fluid, or well-organized fluid collection. Vasculature: Moderate systemic atherosclerotic calcification without abdominal aortic aneurysm. Lymph nodes: No enlarged lymph nodes. Bones/joints: No acute fracture. Posterior instrumented fusion at L4-L5 with trace anterolisthesis. Degenerative changes along the spine and visualized right sacroiliac joint. Soft tissues: Unremarkable. CT/CT abdomen w con* [id number] IMPRESSION: 1. Mildly increased size of benign bilateral simple renal cysts from June 2017, not suspicious. 2. Stable right hepatic cyst. 3. Additional chronic and incidental findings as above, to include atherosclerosis and colonic diverticulosis. COMMENTS: Consistent with the [employer]'s Incidental Findings Committee white paper (J Am Renée Radiol 2018): Any incidental renal lesion less than 1 cm or classified as too small to characterize, or any incidental cystic renal lesion characterized as simple-appearing, is likely benign. No follow-up imaging is recommended for these lesions per consensus recommendations based on imaging criteria.
[2022-10-30] MEDS: iohexol 350 mg/mL 500 mL Btl (per mL) IV (13:22)
[2022-10-30 13:33] LABS: Blood Urea Nitrogen 18 mg/dL (8-23)
== END 2022-10-30 12:34 | disposition home or self-care (01) ==
PROVIDERS: PCP Internal Medicine; Visit Provider Internal Medicine
DX: N28.1 Cyst of kidney, acquired (principal)
CPT/HCPCS: 74160; 82565; 84520; Q9967

== ENCOUNTER → 2022-12-18 09:39 | Outpatient (BNVA) | payer MEDICARE, OTHER, SELFPAY | PROVIDERS: PCP Internal Medicine; Visit Provider Internal Medicine Cardiovascular Disease | DX: I25.10 Atherosclerotic heart disease of native coronary artery without angina pectoris (principal); Z98.61 Coronary angioplasty status; I10 Essential (primary) hypertension; E78.5 Hyperlipidemia, unspecified; I25.2 Old myocardial infarction | CPT/HCPCS: 99213 ==

== ENCOUNTER 2023-04-06 18:53 | Emergency (ER) | payer MEDICARE, OTHER, SELFPAY ==
[2023-04-06 18:58] VITALS: BP 103/67; PULSE 43; RESP 16; TEMP 36.1; O2SAT 92
--- NOTE | 2023-04-06 19:05 | CTR_ITS ---
PROCEDURE INFORMATION: Exam: CT Abdomen And Pelvis With Contrast Exam date and time: 04/06/2023 8:01 PM Age: 72 years old Clinical indication: Abdominal pain; Generalized; Additional info: Abd pain TECHNIQUE: Imaging protocol: Computed tomography of the abdomen and pelvis with contrast. Radiation optimization: All CT scans at this facility use at least one of these dose optimization techniques: automated exposure control; mA and/or kV adjustment per patient size (includes targeted exams where dose is matched to clinical indication); or iterative reconstruction. Contrast material: OMNI 350; Contrast volume: 100 ml; Contrast route: INTRAVENOUS (IV); REPORTING DATA: Count of CT and Cardiac NM exams in prior 12 months: This patient has received 2 known CTs and 0 known cardiac nuclear medicine studies in the 12 months prior to the current study. COMPARISON: CT abdomen w con* [id number] 10/30/2022 1:29 PM RADIATION DOSE METRICS: Total DLP (mGy-cm): 746 FINDINGS: Lungs: In the short interval from the prior exam, several small noncalcified pulmonary nodules have developed at the right lung base. No airspace disease. Largest single nodule measures 8 mm maximal diameter (series 3, image 15). Pleural spaces: No pleural fluid. Heart: Heart is upper limit of normal in size. Liver: Probable hemangioma caudal tip right hepatic lobe. Scattered low-attenuation foci throughout the liver are too small to fully characterize but likely cysts or hamartomas. Gallbladder and bile ducts: No regional inflammation. No calcified stones. No ductal dilation. Pancreas: Normal. No ductal dilation. Spleen: Normal. No splenomegaly. Adrenal glands: Normal configuration. Kidneys and ureters: Bilateral renal cysts. No renal obstruction or inflammation. Stomach and bowel: Decompressed stomach without visible inflammation or mass. Normal caliber small bowel. There is liquid fecal debris throughout the colon to the level of the sigmoid. Abundant desiccated appearing fecal debris noted in the rectum. There is diverticulosis without evidence of acute diverticulitis. Appendix: Normal appendix is confirmed. Intraperitoneal space: No free air. No significant fluid collection. Vasculature: Mild aortoiliac calcific atherosclerosis without aneurysm. Lymph nodes: No enlarged lymph nodes. Urinary bladder: Unremarkable as visualized. Reproductive: Physiologic appearance for age. Bones/joints: Changes of prior lumbar fusion procedure are noted. Adequate spinal canal. Bilateral sacroiliac osteoarthritis. Soft tissues: No perineal/perianal abscess or inflammation. CT/CT abdomen pelvis w con* [id number] IMPRESSION: 1. Exam demonstrates findings of rectal fecal impaction. Liquid fecal debris in the proximal colon may reflect recent laxative use or superimposed acute colitis. 2. Several noncalcified nodules have developed at the right lung base, largest of which measures 8 mm in diameter. Development over the short interval from October 2022 favors an inflammatory etiology, but the possibility of metastatic disease is not excluded. For patients at low risk (minimal or absent history of smoking and of other known risk factors), recommend CT Chest at 3-6 months, then consider CT Chest at 18-24 months. For patients at high risk (history of smoking or of other known risk factors), recommend CT Chest at 3-6 months, then CT Chest at 18-24 months. (Reference: Clemente) COMMENTS: Consistent with the [employer]'s Incidental Findings Committee white paper (J Am Renée Radiol 2018): Any incidental renal lesion less than 1 cm or classified as too small to characterize, or any incidental cystic renal lesion characterized as simple-appearing, is likely benign. No follow-up imaging is recommended for these lesions per consensus recommendations based on imaging criteria. REFERENCES: Clemente Sams, et al. Guidelines for Management of Incidental Pulmonary Nodules Detected on CT Images: From the Fleischner Society 2017. Radiology. 2017;284(1):228-243.
--- NOTE | 2023-04-06 19:05 | XRR_ITS ---
PROCEDURE INFORMATION: Exam: XR Chest Exam date and time: 04/06/2023 7:08 PM Age: 72 years old Clinical indication: Other: Abd pain; Prior surgery; Surgery date: 6+ months; Surgery type: C. Spine TECHNIQUE: Imaging protocol: Radiologic exam of the chest. Views: 1 view. COMPARISON: CR XR chest 1V portable [id number] 04/30/2021 8:27 PM FINDINGS: Lungs: Unremarkable. No consolidation. Pleural spaces: Unremarkable. No pleural effusion. No pneumothorax. Heart/Mediastinum: Unremarkable. No cardiomegaly. Bones/joints: Previous cervical spine fusion. Degenerative changes in the thoracic spine. XR/XR chest 1V portable [id number] IMPRESSION: No acute findings.
--- NOTE | 2023-04-06 19:14 | ED_ITS ---
HPI - Abdominal Pain 2 General: Chief Complaint: Abdominal Pain Stated Complaint: light headed low bp Time Seen by Provider: 04/06/23 18:58 Source: patient Mode of arrival: ambulatory Limitations: no limitations History of Present Illness: 72-year-old male states he has had diffu se abdominal pain today along with constipation. He states he had lower abdominal pain he states he took mag citrate along with enema not able have a bowel movement states it felt like he was going to pass out. Rates his pain a 2 out of 10 denies any chest pain denies any vomiting. Associated Symptoms: Reports constipation; Denies chills, diarrhea, dysuria, fever(s), nausea and vomiting Review of Systems 2 Const: Denies: fever(s), chills, body aches or change in appetite ENMT: Denies: throat pain or dental pain Card: Reports: pre-syncope; Denies: chest pain Resp: Denies: dyspnea GI: Reports: abdominal pain and constipation; Denies: nausea, vomiting or diarrhea : Denies: dysuria Musc: Denies: neck pain or back pain Skin/Breast: Denies: rash Neuro: Denies: headache(s) PFSH ED 2 PFSH: Medical History Erectile dysfunction Bilateral renal stones HTN (hypertension) Dyslipidemia Myocardial infarction ASHD (arteriosclerotic heart disease) Surgical History S/P PTCA (percutaneous transluminal coronary angioplasty) Family History Father , at age 94 COVID-19 Mother , at age 92 No problems noted. 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 Physical Exam 2 Const: COMMON NORMALS: no acute distress, patient oriented x3 and healthy appearing HENMT: COMMON NORMALS: normocephalic and atraumatic HEAD & SCALP: n ormocephalic and atraumatic Neck/C-Spine: COMMON NORMALS: full ROM and supple Chest: COMMONS NORMALS: normal inspection of the chest and normal palpation of entire chest wall Resp: COMMON NORMALS: normal respiratory effort, No retractions, No use of accessory muscles and clear to auscultation bilaterally AUSCULTATION: clear to auscultation bilaterally Cardio: COMMON NORMALS: regular rhythm and No murmurs present (Cardio) R ATE: bradycardic RHYTHM: regular rhythm GI: COMMON NORMALS: Normal to inspection, nondistended, normoactive bowel sounds present, Soft to palpation, non-tender and no masses PALPATION: Yes Soft to palpation Extremity: COMMON NORMALS: normal to inspection and full ROM Neuro: COMMON NORMALS: patient oriented x3, moves all extremities and no focal motor deficits Psych: COMMON NORMALS: mental status grossly normal, Normal thought process present and cooperative THOUGHT PROCESS: Normal thought process present Skin: COMMON NORMALS: no rashes or lesions noted and no wounds GENERAL SKIN EXAM: no rashes or lesions noted Procedures Rectal Disimpaction Time out performed rectal disimpaction: Yes Indication: fecal impaction Procedural Sedation: No Sedation/Analgesia: none Technique: manual disimpaction with gloved finger Result: significant stool output Patient Tolerated Procedure: well Complications: none Course 2 Vital Signs: Vital signs: Vital Signs Temperature 97 F L 04/06/23 18:58 Pulse Rate 43 L 04/06/23 18:58 Respiratory Rate 16 04/06/23 18:58 Blood Pressure 103/67 04/06/23 18:58 Pulse Oximetry 92 04/06/23 18:58 MDM - Abdominal Pain Medical Decision Making Patient presents here with abdominal pain likely from constipation rectal fecal impaction. He was unable have a bowel movement here I did manually disimpact him he feels much improved at this time he is to take MiraLAX at home he is stable for discharge return if worsening. Medical Records I reviewed the patient's medical records. Lab Data I reviewed the patient's lab results. 04/06/23 19:25 04/06/23 19:25 Labs/Radiology: Radiology Impressions Abdomen/Pelvis CT 04/06/23 19:05 IMPRESSION: 1. Exam demonstrates findings of rectal fecal impaction. Liquid fecal debris in the proximal colon may reflect recent laxative use or superimposed acute colitis. 2. Several noncalcified nodules have developed at the right lung base, largest of which measures 8 mm in diameter. Development over the short interval from October 2022 favors an inflammatory etiology, but the possibility of metastatic disease is not excluded. For patients at low risk (minimal or absent history of smoking and of other known risk factors), recommend CT Chest at 3-6 months, then consider CT Chest at 18-24 months. For patients at high risk (history of smoking or of other known risk factors), recommend CT Chest at 3-6 months, then CT Chest at 18-24 months. (Reference: Clemente) COMMENTS: Consistent with the [employer]'s Incidental Findings Committee white paper (J Am Renée Radiol 2018): Any incidental renal lesion less than 1 cm or classified as too small to characterize, or any incidental cystic renal lesion characterized as simple-appearing, is likely benign. No follow-up imaging is recommended for these lesions per consensus recommendations based on imaging criteria. REFERENCES: Clemente Sams, et al. Guidelines for Management of Incidental Pulmonary Nodules Detected on CT Images: From the Fleischner Society 2017. Radiology. 2017;284(1):228-243. Chest X-Ray 04/06/23 19:05 IMPRESSION: No acute findings. Laboratory Results WBC 13.58 10^3/uL (3.29-11.43) H 04/06/23 19:25 RBC 5.03 10^6/uL (3.85-5.65) 04/06/23 19:25 Hgb 14.50 g/dL (11.27-16.99) 04/06/23 19:25 Hct 45.3 % (37-53) 04/06/23 19:25 MCV 90.1 fl (82-101) 04/06/23 19:25 MCH 28.8 pg (27-33) 04/06/23 19:25 MCHC 32.0 g/dL (30-55) 04/06/23 19:25 RDW 13.0 % (12.1-15.1) 04/06/23 19:25 Plt Count 191 10^3/cmm (157-399) 04/06/23 19:25 MPV 11.8 fL (7.4-10.4) H 04/06/23 19:25 Neut % (Auto) 81.2 % 04/06/23 19:25 Lymph % (Auto) 9.6 % 04/06/23 19:25 Chambers % (Auto) 7.0 % 04/06/23 19:25 Eos % (Auto) 1.0 % 04/06/23 19:25 Baso % (Auto) 0.8 % 04/06/23 19:25 Neut # (Auto) 11.03 10^3/uL (1.8-7.7) H 04/06/23 19:25 Lymph # (Auto) 1.3 10^3/uL (0.8-4.8) 04/06/23 19:25 Chambers # (Auto) 1.0 10^3/uL (0.2-0.9) H 04/06/23 19:25 Eos # (Auto) 0.1 10^3/uL (0.0-0.8) 04/06/23 19:25 Baso # (Auto) 0.1 10^3/uL (0.0-0.1) 04/06/23 19:25 Nucleated RBC % (auto) 0 % 04/06/23 19:25 Nucleated RBCs # 0.0 /100WBC 04/06/23 19:25 Sodium 139 mmol/L (136-145) 04/06/23 19:25 Potassium 4.0 mmol/L (3.5-5.1) 04/06/23 19:25 Chloride 103 mmol/L (98-107) 04/06/23 19:25 Carbon Dioxide 22 mmol/L (22-29) 04/06/23 19:25 Anion Gap 18.0 (5-19) 04/06/23 19:25 BUN 17 mg/dL (8-23) 04/06/23 19:25 Creatinine 0.9 mg/dL (0.7-1.2) 04/06/23 19:25 GFR Calculation Not Reportable 04/06/23 19:25 Glucose 134 mg/dL (65-115) H 04/06/23 19:25 Calculated Osmolality 292 mOsm/kg (285-295) 04/06/23 19:25 Calcium 9.1 mg/dL (8.5-10.5) 04/06/23 19:25 Total Bilirubin 0.6 mg/dL (0.15-1.2) 04/06/23 19:25 AST 17 U/L (0-40) 04/06/23 19:25 ALT 19 U/L (0-41) 04/06/23 19:25 Alkaline Phosphatase 96 U/L (40-130) 04/06/23 19:25 Total Protein 6.8 g/dL (6.6-8.7) 04/06/23 19:25 Albumin 4.0 g/dL (3.5-5.2) 04/06/23 19:25 Globulin 2.8 g/dL (1.3-4.6) 04/06/23 19:25 Lipase 94 U/L (13-60) H 04/06/23 19:25 All radiology interpretation(s) finalized by discharge EKG Data EKG 1: I personally reviewed and interpreted this EKG as follows: EKG interpretation date: 04/06/23 EKG interpretation time: 19:19 Interpretation: sinus swati hr [address] or t wave abnormalities qrs 103 qtc 408 Discharge Plan Discharge Patient Disposition: Home Clinical Impression: Constipation Condition: Stable Prescriptions: New Miralax 17 gram powder in packet 17 g PO DAILY PRN (Reason: constipation) Qty: 14 0RF No Action B12 Active 1,000 mcg tablet,chewable 1,000 mcg PO DAILY@0700 acetaminophen [Tylenol Extra Strength] 500 mg tablet 500 mg PO Q6H PRN (Reason: Pain) calcium carbonate 600 mg calcium (1,500 mg) tablet 600 mg PO BID magnesium 250 mg tablet 250 mg PO DAILY pantoprazole 40 mg tablet,delayed release (DR/EC) 40 mg PO DAILY metoprolol tartrate 25 mg tablet 12.5 mg PO DAILY Qty: 45 3RF Rx Instructions: Dose change sildenafil 100 mg tablet 100 mg PO DAILY PRN (Reason: sexual activity) Qty: 10 3RF Rx Instructions: administer 30 minutes to 4 hours before activity amlodipine 10 mg tablet 10 mg PO DAILY@0700 Qty: 90 3RF valsartan 160 mg tablet 160 mg PO DAILY Qty: 90 3RF atorvastatin 80 mg tablet See Rx Instructions .ROUTE .COMPLEX Qty: 90 3RF Dose Instruction: TAKE 1 TABLET BY MOUTH EVERYDAY AT BEDTIME Rx Instructions: TAKE 1 TABLET BY MOUTH EVERYDAY AT BEDTIME clopidogrel 75 mg tablet See Rx Instructions .ROUTE .COMPLEX Qty: 90 3RF Dose Instruction: TAKE 1 TABLET BY MOUTH EVERY DAY AT 7AM Rx Instructions: TAKE 1 TABLET BY MOUTH EVERY DAY AT 7AM aspirin 81 mg Tablet,Delayed Release (Dr/Ec) 81 mg PO DAILY@0700 Discharge Orders: Discharge ED (Routine); Ordered 04/06/23 Ordered By: Kiera Ojeda Referrals: Nas Malagon DO [Primary Care Provider] - 1-3 days Discharge Diet: Advance as tolerated Discharge Activity: Resume usual activity Patient Instructions: Constipation (ED) Coding Level of Care Code ED Pediatric Dentist for Moshe Darby
--- NOTE | 2023-04-06 19:15 | ECG_ITS ---
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 [id number]
[2023-04-06] MEDS: sodium chloride 0.9% 1,000 ML 999 ML IV (19:22)
[2023-04-06] MEDS: ondansetron 2 mg/ML SDV 2 mL 4 MG IVP (19:22)
[2023-04-06] MEDS: morphine 4 mg/mL SDV 1 mL IVP ×2 (19:27→20:38)
[2023-04-06 19:36] LABS: Basophils # 0.1 10^3/uL (0.0-0.1); Basophils % 0.8 %; Eosinophils # 0.1 10^3/uL (0.0-0.8); Hematocrit 45.3 % (37-53); Lymphocytes # 1.3 10^3/uL (0.8-4.8); Lymphocytes % 9.6 %; Mean Corpuscular Hemoglobin 28.8 pg (27-33); Mean Corpuscular Volume 90.1 fl (82-101); Mean Platelet Volume 11.8 fL (7.4-10.4); Neutrophils # 11.03 10^3/uL (1.8-7.7); Neutrophils % 81.2 %; Nucleated Red Blood Cells % 0 %; Platelet Count 191 10^3/cmm (157-399); Red Blood Count 5.03 10^6/uL (3.85-5.65); White Blood Count 13.58 10^3/uL (3.29-11.43)
[2023-04-06 19:49] LABS: Alanine Aminotransferase 19 U/L (0-41); Alkaline Phosphatase 96 U/L (40-130); Aspartate Amino Transferase 17 U/L (0-40); Blood Urea Nitrogen 17 mg/dL (8-23); Calcium 9.1 mg/dL (8.5-10.5); Carbon Dioxide 22 mmol/L (22-29); Chloride 103 mmol/L (98-107); Globulin 2.8 g/dL (1.3-4.6); Glucose 134 mg/dL (65-115); Lipase 94 U/L (13-60); Osmolality Calculated 292 mOsm/kg (285-295); Sodium 139 mmol/L (136-145); Total Bilirubin 0.6 mg/dL (0.15-1.2); Total Protein 6.8 g/dL (6.6-8.7)
[2023-04-06 19:58] LABS: Slide Review Slide Review Perform
[2023-04-06] MEDS: iohexol 350 mg/mL 500 mL Btl (per mL) IV (20:07)
[2023-04-06] MEDS: lactulose oral liq 20 gm/30 mL UDC 30 GM PO (20:47)
== END 2023-04-06 22:08 | disposition home or self-care (01) ==
PROVIDERS: Emergency Provider Emergency Medicine; PCP Internal Medicine
DX: K59.00 Constipation, unspecified (principal); Z79.02 Long term (current) use of antithrombotics/antiplatelets; Z79.82 Long term (current) use of aspirin; R91.8 Other nonspecific abnormal finding of lung field; I10 Essential (primary) hypertension; E78.5 Hyperlipidemia, unspecified; I25.2 Old myocardial infarction
CPT/HCPCS: 36415; 71045; 74177; 80053; 83690; 85025; 93005; 96361; 96374; 96375; 96376; 99285; J2270; J2405; J7030; Q9967

== ENCOUNTER → 2023-06-18 09:43 | Outpatient (BNVA) | payer MEDICARE, OTHER, SELFPAY | PROVIDERS: PCP Internal Medicine; Visit Provider Internal Medicine Cardiovascular Disease | DX: I25.10 Atherosclerotic heart disease of native coronary artery without angina pectoris (principal); Z98.61 Coronary angioplasty status; E78.5 Hyperlipidemia, unspecified; I10 Essential (primary) hypertension; I25.2 Old myocardial infarction | CPT/HCPCS: 99213 ==

== ENCOUNTER 2023-08-16 11:00 | Outpatient (CLI) | payer MEDICARE, OTHER, SELFPAY ==
--- NOTE | 2023-08-16 11:03 | CT_ITS ---
WS: [id number] CT chest wo con [id number] HISTORY: SOLITARY PULMONARY NODULE TECHNIQUE: Axial imaging performed through the thorax. Coronal and sagittal reformats are submitted. All CT scans at [facility] use at least one of these dose optimization techniques: automated exposure control; mA and/or kV adjustment per patient size (includes targeted exams where dose is mat ched to clinical indication); or iterative reconstruction. CONTRAST: None DLP: 375.82 mGy.cm COMPARISON: 06/14/2017, CT abdomen 04/06/2023 Lungs and central airway: Interval improved aeration at the lung bases since 04/06/2023. Previously d escribed nodules and opacifications at the RIGHT lung base have improved. There is still a few residu al opacifications which are most likely atelectasis or scar. No new or increasing size of nodule. The re is a benign calcification superior segment RIGHT lower lobe. Pleura: Normal. No pleural effusion. Heart and pericardium: Normal size heart. Extensive coronary artery calcifications. Dense plaque invo lving the LAD and circumflex coronary artery. Lesser amount of plaque in the RIGHT coronary. Mediastinum and lyudmila: Small mediastinal and hilar lymph nodes. Largest lymph node is 14 mm, subcarina l which is stable since 2018. Vessels: Mild atherosclerosis aorta. Pulmonary artery size equal to the aorta. Chest wall and lower neck: Mild gynecomastia. Upper abdomen: No adrenal mass. Hepatic steatosis. Osseous structures: Increase in thoracic kyphosis. CT/CT chest wo con [id number] IMPRESSION: 1. Near complete resolution of the recently described RIGHT lung base nodules and opacifications. There are no new or increasing size of nodule. No additiona l imaging is necessary concerning these nodules. 2. Mild atherosclerosis aorta. 3. Extensive calcification in the coronary arteries, most significant involvin g the LAD and circumflex arteries.
== END 2023-08-16 11:01 | disposition home or self-care (01) ==
LOC: RAD 11:00
PROVIDERS: PCP Internal Medicine; Visit Provider Physician Assistant
DX: R91.1 Solitary pulmonary nodule (principal); I70.0 Atherosclerosis of aorta; I25.10 Atherosclerotic heart disease of native coronary artery without angina pectoris
CPT/HCPCS: 71250

== ENCOUNTER → 2023-08-26 09:24 | Outpatient (BNVA) | payer MEDICARE, OTHER, SELFPAY | PROVIDERS: PCP Internal Medicine; Visit Provider Nurse Practitioner Family | DX: I25.10 Atherosclerotic heart disease of native coronary artery without angina pectoris (principal); I10 Essential (primary) hypertension | CPT/HCPCS: 99213 ==

== ENCOUNTER 2023-11-28 13:48 | Inpatient (IN) | payer MEDICARE, OTHER, SELFPAY ==
[2023-11-28] VITALS (67 sets, daily range): BP systolic 94–140; BP diastolic 39–67; PULSE 42–109; RESP 0–25; TEMP 36.6–36.7; O2SAT 87–98; BMI 26.9; BMI 27.8
--- NOTE | 2023-11-28 14:17 | ECG_ITS ---
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 Measurements Intervals Telephone Rate: 41 P: 59 IN: 174 QRS: 15 QRSD: 106 T: 70 QT: 451 QTc: 377 Interpretive Statements SINUS BRADYCARDIA Compared to ECG 04/06/2023 19:15:22 No significant changes Electronically Signed On 11-28-2023 20:06:49 CDT by Abraham Prabhakar M.D. [email or web address] [email or web address] [id number]
[2023-11-28 14:33] LABS: Glucose Point of Care 80 mg/dL (70-110)
[2023-11-28 14:33] LABS: Basophils # 0.1 10^3/uL (0.0-0.1); Basophils % 1.3 %; Eosinophils # 0.3 10^3/uL (0.0-0.8); Eosinophils % 4.1 %; Hematocrit 43.8 % (37-53); Lymphocytes # 1.3 10^3/uL (0.8-4.8); Lymphocytes % 18.6 %; Mean Corpuscular HGB Conc 31.7 g/dL (30-55); Mean Corpuscular Hemoglobin 28.2 pg (27-33); Mean Corpuscular Volume 88.8 fl (82-101); Mean Platelet Volume 11.1 fL (7.4-10.4); Monocytes # 0.7 10^3/uL (0.2-0.9); Monocytes % 10.8 %; Neutrophils % 64.8 %; Nucleated Red Blood Cells % 0 %; Platelet Count 199 10^3/cmm (157-399); Red Blood Count 4.93 10^6/uL (3.85-5.65); Red Cell Distribution Width 13.4 % (12.1-15.1); White Blood Count 6.79 10^3/uL (3.29-11.43)
[2023-11-28] MEDS: sodium chloride 0.9% 1,000 ML 999 ML IV ×2 (14:42→15:46)
[2023-11-28 14:53] LABS: Alanine Aminotransferase 20 U/L (0-41); Alkaline Phosphatase 93 U/L (40-130); Aspartate Amino Transferase 18 U/L (0-40); Blood Urea Nitrogen 24 mg/dL (8-23); Calcium 9.6 mg/dL (8.5-10.5); Carbon Dioxide 22 mmol/L (22-29); Chloride 103 mmol/L (98-107); Globulin 2.7 g/dL (1.3-4.6); Glucose 91 mg/dL (65-115); Magnesium 2.2 mg/dL (1.7-2.3); Osmolality Calculated 290 mOsm/kg (285-295); Sodium 138 mmol/L (136-145); Total Bilirubin 0.3 mg/dL (0.15-1.2); Total Protein 6.7 g/dL (6.6-8.7)
[2023-11-28 14:56] LABS: Creatinine Clr Calc Pharmacy 42.6468
--- NOTE | 2023-11-28 15:15 | XRR_ITS ---
PROCEDURE INFORMATION: Exam: XR Chest Exam date and time: 11/28/2023 3:48 PM Age: 73 years old Clinical indication: Other: Low heart rate; Additional info: Lightheaded/dyspneic, low heart rate TECHNIQUE: Imaging protocol: Radiologic exam of the chest. Views: 1 view. COMPARISON: CT chest con [id number] 08/16/2023 11:09 AM FINDINGS: Lungs: No focal consolidation. Pleural spaces: No evidence of pneumothorax. No evidence of pleural effusion. Heart/Mediastinum: Cardiomediastinal silhouette is within normal limits. Bones/joints: No evidence of acute osseous abnormality. Cervical fusion hardware noted. XR/XR chest 1V portable [id number] IMPRESSION: 1. No acute cardiopulmonary abnormality.
--- NOTE | 2023-11-28 15:17 | ED_ITS ---
HPI - Weakness 2 General: Chief complaint: Weakness Stated complaint: low B/P blurry vison Time Seen by Provider: 11/28/23 14:15 History of Present Illness: 73-year-old male with a history of coron corky artery disease on aspirin and Plavix presents the emergency department complaining of lightheadedness. It is particularly bad with exertion or standing. Patient reports he woke up this morning and had some fatigue. He went to play golf at 10 AM. He reports he was getting by until the last 2 holes. He was really just too lightheaded to continue playing. He says when he stood up he would sometimes see a white light in the center of his vision. He felt as if he was going to pass out. He denies any chest pain, palpitations, leg swelling, hemoptysis, recent illness, blood loss, anemia, medication changes. He does take metoprolol 12.5 mg daily as well as amlodipine 10 mg daily. These are chronic medications without any new changes. He denies any neck pain jaw pain arm pain or other anginal symptoms. Associated symptoms: Denies chest pain, chills, dysuria, fever(s), headache(s), nausea, syncope or vomiting Review of Systems 2 General: Reports: 10 or more systems reviewed and unremarkable except in HPI and below Const: Denies: fever(s), chills or body aches Eyes: Denies: change in vision ENMT: Denies: throat pain Card: Denies: chest pain, edema or syncope Resp: Denies: dyspnea or productive cough GI: Denies: abdominal pain, nausea, vomiting or diarrhea : Denies: flank pain, dysuria or urinary frequency Musc: Denies: neck pain, back pain, extremity pain or extremity swelling Skin/Breast: Denies: rash or erythema Neuro: Denies: headache(s), numbness in extremities, weakness in extremities, lack of coordination or difficulty walking PFSH ED 2 PFSH: Medical History Erectile dysfunction Bilateral renal stones HTN (hypertension) Dyslipidemia Myocardial infarction ASHD (arteriosclerotic heart disease) Surgical History S/P PTCA (percutaneous transluminal coronary angioplasty) Family History Father , at age 94 COVID-19 Mother , at age 92 No problems noted. 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 Heart rate dropping to 38 and 39 several times during the history and physical. Const: COMMON NORMALS: no limitations, alert and well nourished EXAM LIMITATIONS: no altered mental status HENMT: COMMON NORMALS: normocephalic, atraumatic and external ears normal H EAD & SCALP: normocephalic and atraumatic EXTERNAL EAR: Yes external ears normal MOUTH: no muffled voice Eye: COMMON NORMALS: EOMs intact bilaterally, conjunctivae normal and no scleral icterus CONJUNCTIVA: Yes conjunctivae normal Neck/C-Spine: COMMON NORMALS: no JVD GENERAL: Yes normal visual inspection and Yes trachea midline Resp: COMMON NORMALS: normal respiratory effort, No use of accessory muscles and clear to auscultation bilaterally AUSCULTATION: clear to auscultation bilaterally Cardio: COMMON NORMALS: no JVD and regular rhythm RHYTHM: regular rhythm GI: COMMON NORMALS: Soft to palpation and non-tender PALPATION: Yes Soft to palpation and No Guarding due to palpation present (GI) Extremity: COMMON NORMALS: normal to inspection Neuro: COMMON NORMALS: moves all extremities, no focal motor deficits and no sensory deficits noted SENSORIUM/ORIENTATION: Yes alert SPEECH: speech normal Psych: COMMON NORMALS: mental status grossly normal, Normal thought process present, cooperative, normal affect and speech normal SPEECH: Yes normal speech THOUGHT PROCESS: Normal thought process present Skin: COMMON NORMALS: no rashes or lesions noted, turgor normal and no jaundice GENERAL SKIN EXAM: no rashes or lesions noted and turgor normal Course 2 Vital Signs: Vital signs: Vital Signs Temperature 98.0 F 11/28/23 14:06 Pulse Rate 42 L 11/28/23 14:06 Respiratory Rate 14 11/28/23 14:06 Blood Pressure 94/53 11/28/23 14:06 Pulse Oximetry 98 11/28/23 14:06 MDM - Weakness Medical Decision Making The patient has what appears to be a sinus bradycardia. This could be sick sinus syndrome. He does take metoprolol 12.5 mg daily. This is a chronic medication for him. It is noted that when he stands up or sits his heart rate does not increase during the exam. I have consulted with Dr. Davies, computer science teacher. The patient does have a history of coronary artery disease status post stenting. Dr. Davies is recommended a low-dose of dopamine to keep his heart rate up and he will do a full consultation on the patient. I have requested admission to the hospital through the hospitalist. It is noted that the patient's electrolytes are normal. Since we are leaning towards admission and going to go ahead and do a chest x-ray and trend troponins. ANDREA is also noted. Patient given 2 L of IV fluids. Discussed with Dr. Pena. Since the patient is going to be on a fixed dopamine drip, he will have to go to the ICU. Lab Data 11/28/23 14:25 11/28/23 14:25 Laboratory Results WBC 6.79 10^3/uL (3.29-11.43) 11/28/23 14: RBC 4.93 10^6/uL (3.85-5.65) 11/28/23 14:25 Hgb 13.90 g/dL (11.27-16.99) 11/28/23 14:25 Hct 43.8 % (37-53) 11/28/23 14:25 MCV 88.8 fl (82-101) 11/28/23 14:25 MCH 28.2 pg (27-33) 11/28/23 14:25 MCHC 31.7 g/dL (30-55) 11/28/23 14:25 RDW 13.4 % (12.1-15.1) 11/28/23 14:25 Plt Count 199 10^3/cmm (157-399) 11/28/23 14:25 MPV 11.1 fL (7.4-10.4) H 11/28/23 14:25 Neut % (Auto) 64.8 % 11/28/23 14:25 Lymph % (Auto) 18.6 % 11/28/23 14:25 [place] % (Auto) 10.8 % 11/28/23 14:25 Eos % (Auto) 4.1 % 11/28/23 14:25 Baso % (Auto) 1.3 % 11/28/23 14:25 Neut # (Auto) 4.40 10^3/uL (1.8-7.7) 11/28/23 14:25 Lymph # (Auto) 1.3 10^3/uL (0.8-4.8) 11/28/23 14:25 [place] # (Auto) 0.7 10^3/uL (0.2-0.9) 11/28/23 14:25 Eos # (Auto) 0.3 10^3/uL (0.0-0.8) 11/28/23 14:25 Baso # (Auto) 0.1 10^3/uL (0.0-0.1) 11/28/23 14:25 Nucleated RBC % (auto) 0 % 11/28/23 14:25 Nucleated RBCs # 0.0 /100WBC 11/28/23 14:25 Sodium 138 mmol/L (136-145) 11/28/23 14:25 Potassium 4.0 mmol/L (3.5-5.1) 11/28/23 14:25 Chloride 103 mmol/L (98-107) 11/28/23 14:25 Carbon Dioxide 22 mmol/L (22-29) 11/28/23 14:25 Anion Gap 17.0 (5-19) 11/28/23 14:25 BUN 24 mg/dL (8-23) H 11/28/23 14:25 Creatinine 1.7 mg/dL (0.7-1.2) H 11/28/23 14:25 GFR Calculation Not Reportable 11/28/23 14:25 Glucose 91 mg/dL (65-115) 11/28/23 14:25 POC Glucose 80 mg/dL (70-110) 11/28/23 14:23 Calculated Osmolality 290 mOsm/kg (285-295) 11/28/23 14:25 Calcium 9.6 mg/dL (8.5-10.5) 11/28/23 14:25 Magnesium 2.2 mg/dL (1.7-2.3) 11/28/23 14:25 Total Bilirubin 0.3 mg/dL (0.15-1.2) 11/28/23 14:25 AST 18 U/L (0-40) 11/28/23 14:25 ALT 20 U/L (0-41) 11/28/23 14:25 Alkaline Phosphatase 93 U/L (40-130) 11/28/23 14:25 Total Protein 6.7 g/dL (6.6-8.7) 11/28/23 14:25 Albumin 4.0 g/dL (3.5-5.2) 11/28/23 14:25 Globulin 2.7 g/dL (1.3-4.6) 11/28/23 14:25 XR interpretation done by ED provider, pending radiology final review Discharge Plan Discharge Patient Disposition: Placed in Observation Clinical Impression: Bradycardia, sinus, Sick sinus syndrome Coding Level of Care Code ED Raimann Machine Operator for Chg Fwd Related Data Home Medications Medication Instructions Recorded Confirmed acetaminophen 500 mg tablet 500 mg PO Q6H PRN Pain 01/29/20 08/26/23 (Tylenol Extra Strength) mecobalamin (vitamin B12) 1,000 1,000 mcg PO DAILY@0700 01/29/20 08/26/23 mcg chewable tablet (B12 Active) aspirin 81 mg tablet,delayed 81 mg PO DAILY@0700 04/03/20 08/26/23 release calcium carbonate 600 mg PO BID 12/03/21 08/26/23 magnesium 250 mg tablet 250 mg PO DAILY 12/03/21 08/26/23 pantoprazole 40 mg tablet,delayed 40 mg PO DAILY 12/18/22 08/26/23 release duloxetine 60 mg capsule,delayed 60 mg PO DAILY 06/18/23 08/26/23 release pregabalin 75 mg capsule 75 mg PO BID 06/18/23 08/26/23 Previous Rx's Medication Instructions Recorded metoprolol tartrate 25 mg tablet 12.5 mg (1/2 x 25 mg) PO DAILY #45 12/18/22 tabs valsartan 160 mg tablet 160 mg PO DAILY #90 tabs 02/15/23 atorvastatin 80 mg tablet See Rx Instructions .Route 03/18/23 .COMPLEX #90 tabs clopidogrel 75 mg tablet See Rx Instructions .Route 03/18/23 .COMPLEX #90 tabs amlodipine 10 mg tablet 10 mg PO DAILY@0700 #90 tabs 04/14/23 Allergies Allergy/AdvReac Type Severity Reaction Status Date / Time No Known Allergies Allergy Verified 11/28/23 14:06
[2023-11-28 15:40] LABS: Troponin(5th) Baseline 17 ng/L (0-15)
[2023-11-28] MEDS: DOPamine drip 400 MG/250 ML PREMIX 22.39 MG IV (15:43)
--- NOTE | 2023-11-28 15:45 | P.HP_ITS ---
Providers/Chief Complaint 2 Primary Care Provider: Nas Malagon DO Chief Complaint: low B/P blurry vison History of Present Illness Selwyn Quintanilla is a 73 year old male with a past medical history of CAD status post stenting, hypertension, hyperlipidemia, who presents [facility] for lightheadedness, dizziness. Patient tells me that he has a history of syncope from dehydration, and from heat exhaustion in the past. He tells me that today he was golfing, when he felt unwell with exertion, lightheadedness, he did have some fatigue when he woke up this morning, he tells me that after playing 2 holes, he felt lightheaded, intermittent changes in his vision, presyncopal symptoms. No chest pain, no palpitations, no nausea, no vomiting, no abdominal pain, no facial droop no slurring of his words, no focal weakness no focal paresthesias, no neck pain. Does use metoprolol at home took his metoprolol this morning. Denies any other drug use. Denies any supplement use. Denies any dysuria, no hematuria, no diarrhea, no nausea, no vomiting. Review of Systems 2 Const: Reports: fatigue; Denies: fever(s) or chills Card: Denies: chest pain Resp: Denies: dyspnea Neuro: Reports: dizziness; Denies: headache(s), numbness in extremities, weakness in extremities, difficulty walking, frequent falls, vertigo, confusion, behavioral changes, Slurred speech present, difficulty communicating thoughts or seizure-like activity Endo: Denies: polyuria Medications/Allergies Home Medications Medication Instructions Recorded Confirmed Last Taken Type acetaminophen 500 mg tablet 500 mg PO Q6H PRN Pain 01/29/20 08/26/23 04/30/22 17:00 History (Tylenol Extra Strength) mecobalamin (vitamin B12) 1,000 1,000 mcg PO DAILY@0700 01/29/20 08/26/23 04/30/22 06:30 History mcg chewable tablet (B12 Active) aspirin 81 mg tablet,delayed 81 mg PO DAILY@0700 04/03/20 08/26/23 05/01/22 05:30 History release calcium carbonate 600 mg PO BID 12/03/21 08/26/23 04/30/22 06:30 History magnesium 250 mg tablet 250 mg PO DAILY 12/03/21 08/26/23 04/30/22 06:30 History metoprolol tartrate 25 mg tablet 12.5 mg (1/2 x 25 mg) PO DAILY #45 12/18/22 08/26/23 Unknown Rx tabs pantoprazole 40 mg tablet,delayed 40 mg PO DAILY 12/18/22 08/26/23 Unknown History release valsartan 160 mg tablet 160 mg PO DAILY #90 tabs 02/15/23 08/26/23 Unknown Rx atorvastatin 80 mg tablet See Rx Instructions .Route 03/18/23 08/26/23 Unknown Rx .COMPLEX #90 tabs clopidogrel 75 mg tablet See Rx Instructions .Route 03/18/23 08/26/23 Unknown Rx .COMPLEX #90 tabs amlodipine 10 mg tablet 10 mg PO DAILY@0700 #90 tabs 04/14/23 08/26/23 Unknown Rx duloxetine 60 mg capsule,delayed 60 mg PO DAILY 06/18/23 08/26/23 Unknown History release pregabalin 75 mg capsule 75 mg PO BID 06/18/23 08/26/23 Unknown History Allergies Allergy/AdvReac Type Severity Reaction Status Date / Time No Known Allergies Allergy Verified 11/28/23 14:06 PFSH Acute 2 PFSH: Medical History Erectile dysfunction Bilateral renal stones HTN (hypertension) Dyslipidemia Myocardial infarction ASHD (arteriosclerotic heart disease) Surgical History S/P PTCA (percutaneous transluminal coronary angioplasty) Family History Father , at age 94 COVID-19 Mother , at age 92 No problems noted. 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 Vitals/I&O/Wt Last Vital Signs Temp 98.0 F 11/28/23 14:06 Pulse 42 L 11/28/23 14:06 Resp 14 11/28/23 14:06 BP 94/53 11/28/23 14:06 Pulse Ox 98 08/18/24 14:06 Weight last 48 hrs Weight 85.275 kg Physical Exam 2 Const: COMMON NORMALS: no acute distress and patient oriented x3 HENMT: COMMON NORMALS: normocephalic HEAD & SCALP: normocephalic Neck/C-Spine: COMMON NORMALS: no JVD Resp: COMMON NORMALS: normal respiratory effort, No retractions, No use of accessory muscles and clear to auscultation bilaterally AUSCULTATION: clear to auscultation bilaterally GI: COMMON NORMALS: Normal to inspection, nondistended, normoactive bowel sounds present, Soft to palpation and non-tender Extremity: COMMON NORMALS: no calf tenderness and no pedal edema Neuro: COMMON NORMALS: patient oriented x3, CN's II-XII intact bilaterally, moves all extremities and no focal motor deficits Psych: COMMON NORMALS: mental status grossly normal Data 11/28/23 14:25 11/28/23 14:25 A&P Assessment and plan (1) Pre-syncope: (2) Dizziness: (3) Bradycardia: (4) HTN (hypertension): Qualifiers: Hypertension type: primary hypertension Qualified Code(s): I10 - Essential (primary) hypertension (5) S/P PTCA (percutaneous transluminal coronary angioplasty): (6) ASHD (arteriosclerotic heart disease): (7) Dyslipidemia: (8) Acute kidney injury: Plan Presyncope, dizziness, bradycardia With history of CAD, history of drug-eluting stent to left circumflex, history of LAD stent -EKG shows sinus bradycardia, currently on telemetry monitoring shows that heart rates is bradycardic, in the mid 50s ? He has a history of bradycardia, status post Holter monitor placement, and 2019 -In February 2019 patient had a temporary pacemaker placed for bradycardia associated with an LAD lesion, that he did not have a third-degree AV block, ? Is currently asymptomatic ? Initial troponin 17 exodus creatinine 1.6, ? Differential includes heat exhaustion, polypharmacy from metoprolol ? She is orthostatic vitals are mildly positive, systolic blood pressure does drop to 90s over 70s upon standing out ? Plan ? CSU overflow to ICU ? IV fluids ? Bedrest ? Will consider orthostatic vitals based on clinical progress ? Hold the metoprolol ? Troponin series, serial EKGs, TSH ? Cardiac echo ? Patient being placed on a dopamine drip ? Will monitor in the ICU closely ? Full code ? Lovenox for DVT prophylaxis Spoke to patient, spoke to patient's , spoke to ER provider, reviewed prior notes, from cardiology Attestations 2 Medical Necessity Statement*: Patient requires hospitalization, for presyncope, dizziness, bradycardia, inpatient, greater than 2 midnights Diagnoses Pre-syncope R55 Dizziness R42 Bradycardia R00.1 Primary hypertension I10 Hypertension type: primary hypertension S/P PTCA (percutaneous transluminal coronary angioplasty) Z98.61 ASHD (arteriosclerotic heart disease) I25.10 Dyslipidemia E78.5 Acute kidney injury N17.9
[2023-11-28 16:09] LABS: Lactic Sepsis W/Reflex 1.3 mmol/L (0.5-2.2)
[2023-11-28 16:19] LABS: NT Pro B Type Natriuretic Pept 138 pg/mL (0-125); Procalcitonin 0.09 ng/mL (0-0.5)
[2023-11-28 16:29] LABS: Creatine Phosphokinase 77 U/L (39-308)
--- NOTE | 2023-11-28 17:15 | ECG_ITS ---
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 Measurements Intervals [place] Rate: 63 P: 0 AL: 0 QRS: 30 QRSD: 110 T: 35 QT: 410 QTc: 421 Interpretive Statements SUPRAVENTRICULAR RHYTHM MODERATE ST DEPRESSION [0.05+ mV ST DEPRESSION] Compared to ECG 11/28/2023 14:32:15 Supraventricular rhythm now present ST (T wave) deviation now present Sinus bradycardia no longer present Electronically Signed On 11-28-2023 20:10:05 CDT by Abraham Prabhakar M.D. [email or web address] [email or web address] county medical centerCreative Allieslutheran [id number]
[2023-11-28 17:17] LABS: Troponin 5 2HR 11.99 ng/L (0-15); Troponin 5 2HR Delta -5.01 ABS# (0-10)
--- NOTE | 2023-11-28 17:40 | PM.CONSULT ---
Providers/Reason For Consult Consulting Physician/Specialty*: Dr. Harinder Villareal Reason for Consult*: Symptomatic bradycardia Hypotension Requesting Physician: Dr. Harinder Villareal Attending Physician: Mono Pena MD Primary Care Provider: Nas Malagon DO History of Present Illness History of Present Illness Selwyn Quintanilla is a 73 year old male past medical history significant for coronary disease history of prior stent to circumflex few years ago, history of sinus bradycardia on 12.5 mg of metoprolol was playing golf when he started noticing dizziness and shortness of breath. According to the patient for the past few days he has been noticing heart rate going down into 40s and whenever he tried to walk he became dizzy and short of breath. Today when he thought he going to pass out he decided to come to the ER. He was noted to be bradycardic, heart rate into low 40s systolic blood pressure was around 90. Patient given IV fluids and started on dopamine currently his blood pressure has improved at the same time heart rate is in the 60s. He denies chest pain PND orthopnea. Twelve-lead EKG showed sinus bradycardia normal axis there were no significant ST's ST changes suggestive of ischemia noted. Review of Systems General: Reports: 10 or more systems reviewed and unremarkable except in HPI and below Const: Reports: fatigue; Denies: fever(s), chills or body aches Eyes: Denies: change in vision ENMT: Denies: throat pain Card: Denies: chest pain, edema or syncope Resp: Denies: dyspnea or productive cough GI: Denies: abdominal pain, nausea, vomiting or diarrhea : Denies: flank pain, dysuria or urinary frequency Musc: Denies: neck pain, back pain, extremity pain or extremity swelling Skin/Breast: Denies: rash or erythema Neuro: Reports: dizziness; Denies: headache(s), numbness in extremities, weakness in extremities, lack of coordination, difficulty walking, frequent falls, vertigo, confusion, behavioral changes, Slurred speech present, difficulty communicating thoughts or seizure-like activity Endo: Denies: polyuria All/Imm: Denies: acute wheezing Medications/Allergies Home Medications Medication Instructions Recorded Confirmed Last Taken Type acetaminophen 500 mg tablet 500 mg PO Q6H PRN Pain 01/29/20 08/26/23 04/30/22 17:00 History (Tylenol Extra Strength) mecobalamin (vitamin B12) 1,000 1,000 mcg PO DAILY@0700 01/29/20 08/26/23 04/30/22 06:30 History mcg chewable tablet (B12 Active) aspirin 81 mg tablet,delayed 81 mg PO DAILY@0700 04/03/20 08/26/23 05/01/22 05:30 History release calcium carbonate 600 mg PO BID 12/03/21 08/26/23 04/30/22 06:30 History magnesium 250 mg tablet 250 mg PO DAILY 12/03/21 08/26/23 04/30/22 06:30 History metoprolol tartrate 25 mg tablet 12.5 mg (1/2 x 25 mg) PO DAILY #45 12/18/22 08/26/23 Unknown Rx tabs pantoprazole 40 mg tablet,delayed 40 mg PO DAILY 12/18/22 08/26/23 Unknown History release valsartan 160 mg tablet 160 mg PO DAILY #90 tabs 02/15/23 08/26/23 Unknown Rx atorvastatin 80 mg tablet See Rx Instructions .Route 03/18/23 08/26/23 Unknown Rx .COMPLEX #90 tabs clopidogrel 75 mg tablet See Rx Instructions .Route 03/18/23 08/26/23 Unknown Rx .COMPLEX #90 tabs amlodipine 10 mg tablet 10 mg PO DAILY@0700 #90 tabs 04/14/23 08/26/23 Unknown Rx duloxetine 60 mg capsule,delayed 60 mg PO DAILY 06/18/23 08/26/23 Unknown History release pregabalin 75 mg capsule 75 mg PO BID 06/18/23 08/26/23 Unknown History Allergies Allergy/AdvReac Type Severity Reaction Status Date / Time No Known Allergies Allergy Verified 11/28/23 14:06 Current Medications Generic Name Dose Route Start Last Admin Trade Name Freq PRN Reason Stop Dose Admin Dopamine HCl/Dextrose 400 mg in 250 mls @ 22.385 mls/hr 11/28/23 15:30 11/28/23 15:43 Intropin Drip IV 7 mcg/kg/min CONT BYRON 22.39 mls/hr Administration Protocol 7 MCG/KG/MIN PFSH Acute PFSH: Medical History Erectile dysfunction Bilateral renal stones HTN (hypertension) Dyslipidemia Myocardial infarction ASHD (arteriosclerotic heart disease) Surgical History S/P PTCA (percutaneous transluminal coronary angioplasty) Family History Father , at age 94 COVID-19 Mother , at age 92 No problems noted. 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 [employer] Dietary Habits: Current diet type/program: regular Caffeine: Yes Exercise: What type of physical activity do you participate in?: walking (golf and cardiac rehab, does 38197 steps a day) How many days of moderate to strenuous exercise, like a brisk walk, did you do in the last 7 days: 5 Vitals/I&O/Wt Last Vital Signs Temp 98.0 F 11/28/23 14:06 Pulse 53 L 11/28/23 17:27 Resp 14 11/28/23 14:06 BP 111/51 11/28/23 17:27 Pulse Ox 95 11/28/23 17:27 O2 Del Method Room Air 11/28/23 17:27 11/28/23 11/28/23 11/28/23 06:59 14:59 22:59 Intake Total 1000 / 1000 Balance 1000 / 1000 Weight last 48 hrs Weight 188 lb Physical Exam Const: OTHER: GENERAL: Patient is alert, awake and oriented x3. NECK: No jugular vein distension. HEENT: No cyanosis. No icterus. No pallor. HEART: Regular S1 and S2. No murmur, rub or gallop. LUNGS: Clear to auscultate bilaterally. ABDOMEN: Soft, nontender and nondistended. Positive bowel sounds. No guarding, rebound or tenderness. CENTRAL NERVOUS SYSTEM: Grossly nonfocal. EXTREMITIES: Lower extremities without edema bilaterally. Data 11/28/23 14:25 11/28/23 14:25 A&P Assessment and plan (1) Bradycardia: Patient presented with symptomatic bradycardia heart rate into 40s he was hypotensive. He was given IV fluid and started on dopamine. DC metoprolol, will observe him for next 24 to 48 hours to rule out reversible causes. Will taper off dobutamine over next 12 hours. Echocardiogram will be obtained. If patient heart rate improves may need treadmill stress test to rule out chronotropic incompetence and discharge patient on event monitor however if patient heart rate remains in the 40s while awake and he is noted to be chronotropically incompetent then he may will be needing permanent pacemaker placement. Dr. Lovett will be back by next week he may can then proceed with permanent pacemaker placement. (2) ASHD (arteriosclerotic heart disease): Stable continue current management rule out acute coronary syndrome which is less likely (3) HTN (hypertension): Hold amlodipine and valsartan. Discontinue beta-stephanie Qualifiers: Hypertension type: primary hypertension Qualified Code(s): I10 - Essential (primary) hypertension Coding Level of Care Code Acute Code for [facility] F[facility] Diagnoses Bradycardia R00.1 ASHD (arteriosclerotic heart disease) I25.10 Primary hypertension I10 Hypertension type: primary hypertension
[2023-11-28] MEDS: enoxaparin 40 mg/0.4 mL Syringe SUBCUT (19:54)
[2023-11-28] MEDS: pregabalin 75 mg Capsule PO (19:54)
[2023-11-28] MEDS: sodium chloride 0.9% 1,000 ML 75 ML IV (19:54)
--- NOTE | 2023-11-28 20:47 | ECG_ITS ---
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 Measurements Intervals [place] Rate: 62 P: 2 AL: 163 QRS: 28 QRSD: 107 T: 71 QT: 429 QTc: 438 Interpretive Statements SINUS RHYTHM WITH OCCASIONAL VENTRICULAR PREMATURE COMPLEXES Compared to ECG 11/28/2023 18:42:59 Ventricular premature complex(es) now present Supraventricular rhythm no longer present ST (T wave) deviation no longer present Electronically Signed On 11-29-2023 12:09:49 CDT by Abraham Prabhakar M.D. [id number]
[2023-11-28 21:11] LABS: Troponin 5 6HR 11.57 ng/L (0-15)
[2023-11-28 21:16] LABS: Troponin 5 6HR Delta -5.43 ng/L (0-12)
[2023-11-28 21:24] LABS: Estmated Average Glucose 111; Hemoglobin A1C 5.5 % (4.0-6.0)
[2023-11-28 21:47] LABS: Chol HDL Ratio 2.91 mg/dL (1.0-5.00); Cholesterol 125 mg/dL (0-200); HDL Cholesterol 43 mg/dL (60-100); LDL Cholesterol Calculated 66 mg/dL (50-129); LDL HDL Ratio 1.53 RATIO (0.00-3.22); Triglycerides 79 mg/dL (0-150)
[2023-11-28] MEDS: ondansetron 2 mg/ML SDV 2 mL 4 MG IVP (22:05)
[2023-11-29] VITALS (102 sets, daily range): BP systolic 87–155; BP diastolic 39–82; PULSE 54–83; RESP 0–30; TEMP 36.5–36.8; O2SAT 82–99
[2023-11-29] MEDS: DOPamine drip 400 MG/250 ML PREMIX 22.39 MG IV (01:56)
[2023-11-29 04:02] LABS: Charge for UA Resulting for Rev
[2023-11-29 04:03] LABS: Bilirubin Urine Negative (Negative); Blood Urine Negative (Negative); Glucose Urine UA Negative (Normal); Ketones Urine Negative (Negative); Leukocyte Esterase Urine Negative (Negative); Nitrate Urine Negative (Negative); Protein Urine Negative (Negative); Specific Gravity, Urine 1.013 (1.005-1.030); Urine Appearance Clear (CLEAR); Urine Color Yellow (Yellow); Urobilinogen Urine 0.2 mg/dL (Negative); pH Urine 5.5 (5-7)
[2023-11-29 04:26] LABS: Basophils # 0.1 10^3/uL (0.0-0.1); Basophils % 0.8 %; Eosinophils # 0.1 10^3/uL (0.0-0.8); Eosinophils % 0.8 %; Hematocrit 40.6 % (37-53); Lymphocytes # 0.9 10^3/uL (0.8-4.8); Lymphocytes % 10.1 %; Mean Corpuscular HGB Conc 32.8 g/dL (30-55); Mean Corpuscular Volume 88.6 fl (82-101); Mean Platelet Volume 11.3 fL (7.4-10.4); Monocytes # 1.2 10^3/uL (0.2-0.9); Monocytes % 13.1 %; Neutrophils # 6.69 10^3/uL (1.8-7.7); Neutrophils % 74.6 %; Nucleated Red Blood Cells % 0 %; Platelet Count 180 10^3/cmm (157-399); Red Blood Count 4.58 10^6/uL (3.85-5.65); Red Cell Distribution Width 12.9 % (12.1-15.1); White Blood Count 8.95 10^3/uL (3.29-11.43)
[2023-11-29 04:44] LABS: Amorphous Sediment Urine TRACE /hpf; Bacteria Urine 1+ /hpf; Hyaline Casts Urine 15-25 /lpf; Mucus Urine 1+ /hpf; RBC Urine 0-4 /hpf (0-2); Squamous Epithelial Cell Urine 0-4 /hpf (0-5); UA Manual Slide Review YES; WBC Urine 0-4 /hpf (0-5)
[2023-11-29 05:00] LABS: Anion Gap 16.6 (5-19); Blood Urea Nitrogen 22 mg/dL (8-23); Calcium 9.4 mg/dL (8.5-10.5); Carbon Dioxide 23 mmol/L (22-29); Chloride 105 mmol/L (98-107); Creatinine Clr Calc Pharmacy 66.8298; Glucose 117 mg/dL (65-115); Magnesium 2.1 mg/dL (1.7-2.3); Osmolality Calculated 294 mOsm/kg (285-295); Potassium 4.6 mmol/L (3.5-5.1); Sodium 140 mmol/L (136-145)
[2023-11-29] MEDS: aspirin 81 mg EC Tablet PO (06:31)
[2023-11-29] MEDS: clopidogrel 75 mg Tablet PO (06:31)
[2023-11-29] MEDS: cyanocobalamin 1,000 mcg Tablet 1000 MCG PO (06:32)
--- NOTE | 2023-11-29 07:34 | P.PN_ITS ---
Subjective 2 Subjective: Patient is overall doing well. No syncope or presyncope. Heart rate is stable off of beta-stephanie. Still on dopamine. Vitals/I&O/Wt Last Vital Signs Temp 98.3 F 11/29/23 04:00 Pulse 64 11/29/23 05:52 Resp 8 L 11/29/23 04:05 BP 118/57 11/29/23 04:05 Pulse Ox 97 11/29/23 04:05 O2 Del Method Room Air 11/28/23 19:27 O2 Flow Rate 98 11/28/23 19:27 11/28/23 11/29/23 11/29/23 22:59 06:59 14:59 Intake Total 1240 / 1240 2266.251 / 3506.251 Output Total 900 / 900 Balance 1240 / 1240 1366.251 / 2606.251 Weight last 48 hrs Weight 194 lb Weight 194 lb Weight 188 lb Physical Exam 2 Narrative: GENERAL: Patient is alert, awake and oriented x3. [] NECK: No jugular vein distension. [] HEENT: No cyanosis. No icterus. No pallor. [] HEART: Regular S1 and S2. No murmur, rub or gallop. [] LUNGS: Clear to auscultate bilaterally. [] CENTRAL NERVOUS SYSTEM: Grossly nonfocal. [] EXTREMITIES: Lower extremities with 1+ edema bilaterally. Data 11/30/23 03:41 11/30/23 03:41 A&P Assessment and plan (1) Bradycardia, sinus: (2) Sick sinus syndrome: (3) Bradycardia: (4) ASHD (arteriosclerotic heart disease): (5) HTN (hypertension): Qualifiers: Hypertension type: primary hypertension Qualified Code(s): I10 - Essential (primary) hypertension Plan Patient's heart rate is stable however he is on dopamine. We will discontinue it. Will plan on performing exercise stress test tomorrow. If patient is found chronotropically competent with appropriate heart rate response, we will discharge home off of beta-stephanie and on event monitor. Attestations 2 Medical Necessity Statement*: Care expected to cross 2 midnights. Coding Level of Care Code Acute Code for [facility] Fwd Diagnoses Bradycardia, sinus R00.1 Sick sinus syndrome I49.5 Bradycardia R00.1 ASHD (arteriosclerotic heart disease) I25.10 Primary hypertension I10 Hypertension type: primary hypertension
[2023-11-29] MEDS: atorvastatin 40 mg Tablet 80 MG PO (08:28)
[2023-11-29] MEDS: pantoprazole 40 mg SDV IVP (08:28)
[2023-11-29] MEDS: duloxetine 60 mg Capsule PO (08:28)
[2023-11-29] MEDS: pregabalin 75 mg Capsule PO ×2 (08:28→17:59)
--- NOTE | 2023-11-29 09:43 | PC.PHAR ---
Spouse thinks pt is taking Clopidogrel 75mg twice daily-last fill 04/15/23 30ds[facility] states pt picked up rx for 150mg twice daily 10/08/23 90ds.
[2023-11-29] MEDS: sodium chloride 0.9% 1,000 ML 75 ML IV (09:53)
--- NOTE | 2023-11-29 14:27 | P.PN_ITS ---
Subjective 2 Subjective: Patient was seen this morning, he is alert awake, follows all commands, blood pressures are a bit soft this morning, heart rates in the 60s, normal sinus rhythm, denies any lightheadedness, dizziness, remains on dopamine drip Vitals/I&O/Wt Last Vital Signs Temp 98.3 F 11/29/23 04:00 Pulse 70 11/29/23 12:30 Resp 20 H 11/29/23 12:30 BP 112/66 11/29/23 12:30 Pulse Ox 91 11/29/23 12:30 O2 Del Method Room Air 11/29/23 12:30 O2 Flow Rate 98 11/28/23 19:27 11/28/23 11/29/23 11/29/23 22:59 06:59 14:59 Intake Total 1240 / 1240 2266.251 / 3506.251 1129.971 / 1129.971 Output Total 900 / 900 1000 / 1000 Balance 1240 / 1240 1366.251 / 2606.251 129.971 / 129.971 Weight last 48 hrs Weight 87.997 kg Weight 87.997 kg Weight 85.275 kg Physical Exam 2 Const: COMMON NORMALS: no acute distress and patient oriented x3 Resp: COMMON NORMALS: normal respiratory effort, No retractions, No use of accessory muscles and clear to auscultation bilaterally AUSCULTATION: clear to auscultation bilaterally Cardio: COMMON NORMALS: regular rate, regular rhythm, S1 normal heart sound present and S2 normal heart sound present RATE: regular rate RHYTHM: r egular rhythm HEART SOUNDS: S1 normal heart sound present and S2 normal heart sound present GI: COMMON NORMALS: Normal to inspection, nondistended, normoactive bowel sounds present and non-tender Extremity: COMMON NORMALS: no pedal edema Neuro: COMMON NORMALS: patient oriented x3 Psych: COMMON NORMALS: mental status grossly normal Data 11/29/23 03:52 11/29/23 03:52 A&P Assessment and plan (1) Pre-syncope: (2) Dizziness: (3) Bradycardia: (4) HTN (hypertension): Qualifiers: Hypertension type: primary hypertension Qualified Code(s): I10 - Essential (primary) hypertension (5) S/P PTCA (percutaneous transluminal coronary angioplasty): (6) ASHD (arteriosclerotic heart disease): (7) Dyslipidemia: (8) Acute kidney injury: Plan Presyncope, dizziness, bradycardia With history of CAD, history of drug-eluting stent to left circumflex, history of LAD stent -EKG shows sinus bradycardia, currently on telemetry monitoring shows that heart rates is bradycardic, in the mid 50s ? He has a history of bradycardia, status post Holter monitor placement, and 2019 -In February 2019 patient had a temporary pacemaker placed for bradycardia associated with an LAD lesion, that he did not have a third-degree AV block, ? Is currently asymptomatic ? Initial troponin 17, 6-hour 11.57 # Creatinine 1.1 ? Differential includes heat exhaustion, polypharmacy from metoprolol ? he is orthostatic vitals are mildly positive, systolic blood pressure does drop to 90s over 70s upon standing out ? Plan ? CSU overflow to ICU ? Creatinine back to normal limits, he looks euvolemic stop IV fluids ? Continue dopamine drip ? Bedrest ? Will consider orthostatic vitals based on clinical progress ? Hold the metoprolol ? Cardiac echo ? Will monitor in the ICU closely ? Full code ? Lovenox for DVT prophylaxis Spoke to patient, spoke to patient's , Attestations 2 Medical Necessity Statement*: Patient requires hospitalization for bradycardia Diagnoses Pre-syncope R55 Dizziness R42 Bradycardia R00.1 Primary hypertension I10 Hypertension type: primary hypertension S/P PTCA (percutaneous transluminal coronary angioplasty) Z98.61 ASHD (arteriosclerotic heart disease) I25.10 Dyslipidemia E78.5 Acute kidney injury N17.9
[2023-11-29] MEDS: enoxaparin 40 mg/0.4 mL Syringe SUBCUT (17:58)
--- NOTE | 2023-11-29 20:27 | PC.NURSE ---
NPO and PO meds: Patient has NPO after midnight orders for upcoming stress test, Dr. Knox was contacted regarding PO antiplatelets ordered for 0700 and gave telephone orders to administer 0700 aspirin and plavix.
[2023-11-30] VITALS (26 sets, daily range): BP systolic 121–190; BP diastolic 66–84; PULSE 58–92; RESP 6–23; TEMP 36.6–37; O2SAT 87–98; BMI 28.3
--- NOTE | 2023-11-30 | ECG_ITS ---
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 Interpretive Statements NAME OF STUDY: TREADMILL STRESS TEST INDICATION: [BRADYCARDIA, ] EXERCISE DATA: The patient was exercised by Eulogio protocol. Baseline heart rate was 60 beats per minute. Baseline blood pressure was 153/84 millimeters of mercury. Maximal predicted heart rate was 147 beats per minute. Maximum heart rate achieved was 144, which was 97% of the maximum predicted heart rate. Maximum blood pressure was 201/113 millimeters of mercury. Total exercise time was 6 minutes and 31 seconds. Maximum METs achieved was 10.2. The reason for ending the test was completion of protocol. The patient complained of shortness of breath during the stress test, which then resolved at the end of the test. ELECTROCARDIOGRAM: BASELINE: Showed sinus rhythm, normal axis, no significant ST-T changes at the baseline noted. [] EXERCISE: At the peak exercise level, [] No significant ST-T changes suggestive of ischemia noted. [] RECOVERY: During the recovery period, heart rate dropped appropriately. No significant ST-T changes in the recovery suggestive of ischemia noted. PVCs seen [] CONCLUSION: 1. Exercise capacity is good. 2. Heart rate response was appropriate. 3. Blood pressure response was hypertensive 4. Symptoms not suggestive of ischemia. 5. Stress test does not show evidence of ischemia. Electronically Signed On 12-04-2023 9:31:08 CDT by Abraham Prabhakar M.D. [id number]
[2023-11-30 04:06] LABS: Basophils # 0.1 10^3/uL (0.0-0.1); Basophils % 0.9 %; Eosinophils # 0.2 10^3/uL (0.0-0.8); Eosinophils % 4.3 %; Hematocrit 37.4 % (37-53); Lymphocytes # 1.4 10^3/uL (0.8-4.8); Mean Corpuscular HGB Conc 31.8 g/dL (30-55); Mean Corpuscular Hemoglobin 28.1 pg (27-33); Mean Corpuscular Volume 88.4 fl (82-101); Mean Platelet Volume 11.4 fL (7.4-10.4); Monocytes # 0.6 10^3/uL (0.2-0.9); Monocytes % 10.8 %; Neutrophils # 3.26 10^3/uL (1.8-7.7); Neutrophils % 58.8 %; Nucleated Red Blood Cells % 0 %; Platelet Count 152 10^3/cmm (157-399); Red Blood Count 4.23 10^6/uL (3.85-5.65); Red Cell Distribution Width 13.2 % (12.1-15.1); White Blood Count 5.55 10^3/uL (3.29-11.43)
[2023-11-30 04:27] LABS: Anion Gap 14.2 (5-19); Blood Urea Nitrogen 17 mg/dL (8-23); Calcium 8.4 mg/dL (8.5-10.5); Carbon Dioxide 23 mmol/L (22-29); Chloride 108 mmol/L (98-107); Creatinine Clr Calc Pharmacy 81.6809; Glucose 93 mg/dL (65-115); Osmolality Calculated 293 mOsm/kg (285-295); Potassium 4.2 mmol/L (3.5-5.1); Sodium 141 mmol/L (136-145)
[2023-11-30] MEDS: aspirin 81 mg EC Tablet PO (06:13)
[2023-11-30] MEDS: clopidogrel 75 mg Tablet PO (06:13)
--- NOTE | 2023-11-30 09:02 | PM.DCS ---
Discharge Providers Date of Admission: 11/28/23 18:54 Date of Discharge: November 30, 2023 Attending Provider at Admission: Mono Pena MD Attending Provider at Discharge: Mono Pena MD Primary Care Provider: Nas Malagon DO Diagnoses at Discharge Discharge Diagnosis (1) Pre-syncope: Status: Acute (2) Dizziness: Status: Acute (3) Bradycardia: Status: Acute (4) HTN (hypertension): Status: Acute Qualifiers: Hypertension type: primary hypertension Qualified Code(s): I10 - Essential (primary) hypertension (5) S/P PTCA (percutaneous transluminal coronary angioplasty): Status: Acute (6) ASHD (arteriosclerotic heart disease): Status: Acute (7) Dyslipidemia: Status: Acute (8) Acute kidney injury: Status: Acute Reason for Visit Reason for Visit: low B/P blurry [facility] Course Hospital Course Selwyn Quintanilla is a 73 year old male with a past medical history of CAD status post stenting, hypertension, hyperlipidemia, who presents [facility] for lightheadedness, dizziness. Patient tells me that he has a history of syncope from dehydration, and from heat exhaustion in the past. He tells me that today he was golfing, when he felt unwell with exertion, lightheadedness, he did have some fatigue when he woke up this morning, he tells me that after playing 2 holes, he felt lightheaded, intermittent changes in his vision, presyncopal symptoms. No chest pain, no palpitations, no nausea, no vomiting, no abdominal pain, no facial droop no slurring of his words, no focal weakness no focal paresthesias, no neck pain. Does use metoprolol at home took his metoprolol this morning. Denies any other drug use. Denies any supplement use. Denies any dysuria, no hematuria, no diarrhea, no nausea, no vomiting. Patient was admitted to [facility] for sinus bradycardia, was monitored as inpatient, in the ICU, did require dopamine drip, eventually weaned off dopamine drip. Heart rates and blood pressures improved and remained stable, no significant bundle branch block. Patient underwent treadmill cardiac stress testing, heart rate up to 140, -Etiology behind patient's bradycardia is likely combination of dehydration, metoprolol, possible sinus node dysfunction -Nonetheless will be discharged with an event monitor in place -Follow-up with cardiology as outpatient -Discontinued metoprolol on discharge -Patient was advised if he were to have any lightheadedness or dizziness to me to go to the emergency room For his dehydration and ANDREA received IV fluids, clinically proved, discharged with instructions to drink plenty of electrolyte balanced fluids on discharge Physical Exam Const: COMMON NORMALS: no acute distress and patient oriented x3 Resp: COMMON NORMALS: normal respiratory effort, No retractions, No use of accessory muscles and clear to auscultation bilaterally AUSCULTATION: clear to auscultation bilaterally Cardio: COMMON NORMALS: regular rate, regular rhythm, S1 normal heart sound present and S2 normal heart sound present RATE: regular rate RHYTHM: regular rhythm HEART SOUNDS: S1 normal heart sound present and S2 normal heart sound present GI: COMMON NORMALS: Normal to inspection, nondistended, normoactive bowel sounds present and non-tender Extremity: COMMON NORMALS: no calf tenderness and no pedal edema Neuro: COMMON NORMALS: patient oriented x3 Psych: COMMON NORMALS: mental status grossly normal Discharge Data Studies Completed and Pending Completed Studies During Hospitalization Category Date Time Status Cardiac Stress Test Request Routine Exams 11/30/23 06:00 Draft XR chest 1V portable [id number] Stat Exams 11/28/23 15:15 Completed Pending at discharge Category Date Time Status Basic Metabolic Panel AM LABS Lab 12/01/23 04:00 Ordered Complete Blood Count w/Auto AM LABS Lab 12/01/23 04:00 Ordered Magnesium AM LABS Lab 12/01/23 04:00 Ordered Radiology Impressions Chest X-Ray 11/28/23 15:15 IMPRESSION: 1. No acute cardiopulmonary abnormality. Laboratory Results WBC 5.55 10^3/uL (3.29-11.43) 11/30/23 03:41 RBC 4.23 10^6/uL (3.85-5.65) 11/30/23 03:41 Hgb 11.90 g/dL (11.27-16.99) 11/30/23 03:41 Hct 37.4 % (37-53) 11/30/23 03:41 MCV 88.4 fl (82-101) 11/30/23 03:41 MCH 28.1 pg (27-33) 11/30/23 03:41 MCHC 31.8 g/dL (30-55) 11/30/23 03:41 RDW 13.2 % (12.1-15.1) 11/30/23 03:41 Plt Count 152 10^3/cmm (157-399) L 11/30/23 03:41 MPV 11.4 fL (7.4-10.4) H 11/30/23 03:41 Neut % (Auto) 58.8 % 11/30/23 03:41 Lymph % (Auto) 25.0 % 11/30/23 03:41 [place] % (Auto) 10.8 % 11/30/23 03:41 Eos % (Auto) 4.3 % 11/30/23 03:41 Baso % (Auto) 0.9 % 11/30/23 03:41 Neut # (Auto) 3.26 10^3/uL (1.8-7.7) 11/30/23 03:41 Lymph # (Auto) 1.4 10^3/uL (0.8-4.8) 11/30/23 03:41 [place] # (Auto) 0.6 10^3/uL (0.2-0.9) 11/30/23 03:41 Eos # (Auto) 0.2 10^3/uL (0.0-0.8) 11/30/23 03:41 Baso # (Auto) 0.1 10^3/uL (0.0-0.1) 11/30/23 03:41 Nucleated RBC % (auto) 0 % 11/30/23 03:41 Nucleated RBCs # 0.0 /100WBC 11/30/23 03:41 Sodium 141 mmol/L (136-145) 11/30/23 03:41 Potassium 4.2 mmol/L (3.5-5.1) 11/30/23 03:41 Chloride 108 mmol/L (98-107) H 11/30/23 03:41 Carbon Dioxide 23 mmol/L (22-29) 11/30/23 03:41 Anion Gap 14.2 (5-19) 11/30/23 03:41 BUN 17 mg/dL (8-23) 11/30/23 03:41 Creatinine 0.9 mg/dL (0.7-1.2) 11/30/23 03:41 GFR Calculation Not Reportable 11/30/23 03:41 Glucose 93 mg/dL (65-115) 11/30/23 03:41 POC Glucose 80 mg/dL (70-110) 11/28/23 14:23 Estimat Average Glucose 111 11/28/23 20:21 Hemoglobin A1c 5.5 % (4.0-6.0) 11/28/23 20:21 Calculated Osmolality 293 mOsm/kg (285-295) 11/30/23 03:41 Lactic Acid 1.3 mmol/L (0.5-2.2) 11/28/23 14:25 Calcium 8.4 mg/dL (8.5-10.5) L 11/30/23 03:41 Phosphorus 4.0 mg/dL (2.5-4.5) 11/28/23 14:25 Magnesium 2.0 mg/dL (1.7-2.3) 11/30/23 03:41 Total Bilirubin 0.3 mg/dL (0.15-1.2) 11/28/23 14:25 AST 18 U/L (0-40) 11/28/23 14:25 ALT 20 U/L (0-41) 11/28/23 14:25 Alkaline Phosphatase 93 U/L (40-130) 11/28/23 14:25 Creatine Kinase 77 U/L (39-308) 11/28/23 14:25 Troponin T Baseline 17 ng/L (0-15) H 11/28/23 14:25 Troponin T 120 Minute 11.99 ng/L (0-15) 11/28/23 16:42 Delta Troponin T -5.01 ABS# (0-10) L 11/28/23 16:42 Troponin T Hi Sens 6Hr 11.57 ng/L (0-15) 11/28/23 20:21 Troponin T Hi Sens 6Hr Delta -5.43 ng/L (0-12) L 11/28/23 20:21 C-Reactive Protein 3.0 mg/L (0.0-4.9) 11/28/23 14:25 NT-Pro-B Natriuret Pep 138 pg/mL (0-125) H 11/28/23 14:25 Total Protein 6.7 g/dL (6.6-8.7) 11/28/23 14:25 Albumin 4.0 g/dL (3.5-5.2) 11/28/23 14:25 Globulin 2.7 g/dL (1.3-4.6) 11/28/23 14:25 Triglycerides 79 mg/dL (0-150) 11/28/23 20:21 Cholesterol 125 mg/dL (0-200) 11/28/23 20:21 LDL Cholesterol, Calc 66 mg/dL (50-129) 11/28/23 20:21 HDL Cholesterol 43 mg/dL (60-100) L 11/28/23 20:21 LDL/HDL Ratio 1.53 RATIO (0.00-3.22) 11/28/23 20: Cholesterol/HDL Ratio 2.91 mg/dL (1.0-5.00) 11/28/23 20: Procalcitonin 0.09 ng/mL (0-0.5) 11/28/23 14:25 TSH 1.00 uIU/mL (0.27-4.20) 11/28/23 20:21 Urine Color Yellow (Yellow) 11/28/23 03:15 Urine Appearance Clear (CLEAR) 11/28/23 03:15 Urine pH 5.5 (5-7) 11/28/23 03:15 Ur Specific [place] 1.013 (1.005-1.030) 11/28/23 03:15 Urine Protein Negative (Negative) 11/28/23 03:15 Urine Glucose (UA) Negative (Normal) 11/28/23 03:15 Urine Ketones Negative (Negative) 11/28/23 03:15 Urine Blood Negative (Negative) 11/28/23 03:15 Urine Nitrate Negative (Negative) 11/28/23 03:15 Urine Bilirubin Negative (Negative) 11/28/23 03:15 Urine Urobilinogen 0.2 mg/dL (Negative) 11/28/23 03:15 Ur Leukocyte Esterase Negative (Negative) 11/28/23 03:15 Urine RBC 0-4 /hpf (0-2) H 11/28/23 03:15 Urine WBC 0-4 /hpf (0-5) H 11/28/23 03:15 Ur Squamous Epith Cells 0-4 /hpf (0-5) H 11/28/23 03:15 Amorphous Sediment Trace /hpf 11/28/23 03:15 Urine Bacteria 1+ /hpf (NONE) H 11/28/23 03:15 Hyaline Casts 15-25 /lpf H 11/28/23 03:15 Urine Mucus 1+ /hpf 11/28/23 03:15 Vitals Last Vital Signs Temp 98.6 F 11/30/23 07:15 Pulse 73 11/30/23 08:00 Resp 21 H 11/30/23 08:00 BP 129/75 11/30/23 08:00 Pulse Ox 96 11/30/23 08:00 O2 Del Method Room Air 11/30/23 08:00 O2 Flow Rate 98 11/28/23 19:27 Discharge Plan Discharge Patient Disposition: Home Condition: Stable Prescriptions: Continued B12 Active 1,000 mcg tablet,chewable 1,000 mcg PO DAILY@0700 acetaminophen [Tylenol Extra Strength] 500 mg tablet 500 mg PO Q6H PRN (Reason: Pain) calcium carbonate 600 mg calcium (1,500 mg) tablet 600 mg PO BID magnesium 250 mg tablet 250 mg PO DAILY pantoprazole 40 mg tablet,delayed release (DR/EC) 40 mg PO DAILY duloxetine 60 mg capsule,delayed release(DR/EC) 60 mg PO DAILY atorvastatin 80 mg tablet See Rx Instructions .ROUTE .COMPLEX Qty: 90 3RF Dose Instruction: TAKE 1 TABLET BY MOUTH EVERYDAY AT BEDTIME Rx Instructions: TAKE 1 TABLET BY MOUTH EVERYDAY AT BEDTIME clopidogrel 75 mg tablet See Rx Instructions .ROUTE .COMPLEX Qty: 90 3RF Dose Instruction: TAKE 1 TABLET BY MOUTH EVERY DAY AT 7AM Rx Instructions: TAKE 1 TABLET BY MOUTH EVERY DAY AT 7AM amlodipine 10 mg tablet 10 mg PO DAILY@0700 Qty: 90 3RF aspirin 81 mg Tablet,Delayed Release (Dr/Ec) 81 mg PO DAILY@0700 terbinafine HCl 250 mg tablet 250 mg PO DAILY pregabalin 150 mg capsule 150 mg PO BID Held valsartan 160 mg tablet 160 mg PO DAILY Qty: 90 3RF Hold Instructions: Resume on 12/13/23. hold until you see primary care and cardiology Discontinued metoprolol tartrate 25 mg tablet 12.5 mg PO DAILY Qty: 45 3RF Rx Instructions: Dose change Discharge Orders: Discharge Order (Routine); Ordered 11/30/23 Ordered By: Mono Pena Other Ambulatory Orders: ECG holter monitor 14 Days (Routine) Timeframe: 1 Day Facility: [facility] - Location: Radiology Ordered By: Mono Pena Referrals: Abraham Prabhakar M.D [Physician] - 2 weeks Nas Malagon DO [Primary Care Provider] - 1-3 days Discharge Diet: Cardiac Discharge Activity: Resume usual activity Patient Instructions: Opioid Safety Activity Restrictions/Additional Instructions: -if you have any chest pain and shortness of breath, lightheadedness please go to emergency room Discharge Attestations Time Spent in Discharge Care*: greater than 30 min Quality Metrics Clinical Quality Measures [ No reported AMI, CVA or VTE this stay] Coding Level of Care Code 93349 Total time (in minutes) for Discharge: 45 Diagnoses Pre-syncope R55 Dizziness R42 Bradycardia R00.1 Primary hypertension I10 Hypertension type: primary hypertension S/P PTCA (percutaneous transluminal coronary angioplasty) Z98.61 ASHD (arteriosclerotic heart disease) I25.10 Dyslipidemia E78.5 Acute kidney injury N17.9
[2023-11-30] MEDS: pantoprazole 40 mg SDV IVP (09:04)
[2023-11-30] MEDS: pregabalin 75 mg Capsule PO (09:05)
[2023-11-30] MEDS: duloxetine 60 mg Capsule PO (09:05)
[2023-11-30] MEDS: cyanocobalamin 1,000 mcg Tablet 1000 MCG PO (09:05)
[2023-11-30] MEDS: magnesium oxide 400 mg tablet 200 MG PO (09:05)
--- NOTE | 2023-11-30 09:46 | P.PN_ITS ---
Subjective 2 Subjective: Patient is doing well. No presyncope/syncope Vitals/I&O/Wt Last Vital Signs Temp 98.6 F 11/30/23 07:15 Pulse 73 11/30/23 08:00 Resp 21 H 11/30/23 08:00 BP 129/75 11/30/23 08:00 Pulse Ox 96 11/30/23 08:00 O2 Del Method Room Air 11/30/23 08:00 O2 Flow Rate 98 11/28/23 19:27 11/29/23 11/30/23 11/30/23 22:59 06:59 14:59 Intake Total 360 / 1863.721 Output Total 1275 / 2275 525 / 2800 Balance -915 / -411.279 -525 / -936.279 Weight last 48 hrs Weight 197 lb 12.074 oz Weight 194 lb Weight 194 lb Weight 188 lb Physical Exam 2 Narrative: GENERAL: Patient is alert, awake and oriented x3. [] NECK: No jugular vein distension. [] HEENT: No cyanosis. No icterus. No pallor. [] HEART: Regular S1 and S2. No murmur, rub or gallop. [] LUNGS: Clear to auscultate bilaterally. [] CENTRAL NERVOUS SYSTEM: Grossly nonfocal. [] EXTREMITIES: Lower extremities with 1+ edema bilaterally. Data 11/30/23 03:41 11/30/23 03:41 A&P Assessment and plan (1) Bradycardia, sinus: (2) Sick sinus syndrome: (3) Bradycardia: (4) ASHD (arteriosclerotic heart disease): (5) HTN (hypertension): Qualifiers: Hypertension type: primary hypertension Qualified Code(s): I10 - Essential (primary) hypertension Plan Patient's heart rate is staying stable off of dopamine. Today had exercise stress test and showed excellent heart rate response. Continue holding beta- stephanie. The patient can be discharged home with event monitor. Please call with questions. Attestations 2 Medical Necessity Statement*: Care expected to cross 2 midnights. Coding Level of Care Code Acute Code for Chg Fwd Diagnoses Bradycardia, sinus R00.1 Sick sinus syndrome I49.5 Bradycardia R00.1 ASHD (arteriosclerotic heart disease) I25.10 Primary hypertension I10 Hypertension type: primary hypertension
--- NOTE | 2023-11-30 13:54 | PC.NURSE ---
Pt discharged home with . Pt instructed to come back tomorrow at 1330 to heart care services for holter montior Discussed follow up appts, medications and any changes, encouraged fluid intake. Pt declined verbal review of [place] [facility] Heart Healthy Diet, Bradycardia, Near Syncope and Opiod Safety.
== END 2023-11-30 13:54 | disposition home or self-care (01) | DRG 309 ==
LOC: ER 15:17 → ICU 17:04
PROVIDERS: Admitting Provider Family Medicine; Emergency Provider Emergency Medicine; PCP Internal Medicine; Visit Provider Family Medicine
DX: R00.1 Bradycardia, unspecified (principal); N17.9 Acute kidney failure, unspecified; I25.10 Atherosclerotic heart disease of native coronary artery without angina pectoris; I10 Essential (primary) hypertension; E78.5 Hyperlipidemia, unspecified; N52.9 Male erectile dysfunction, unspecified; E86.0 Dehydration; I49.5 Sick sinus syndrome; I25.2 Old myocardial infarction; Z79.82 Long term (current) use of aspirin; Z79.02 Long term (current) use of antithrombotics/antiplatelets; Z95.5 Presence of coronary angioplasty implant and graft
CPT/HCPCS: 36415; 36416; 71045; 80048; 80053; 80061; 81003; 81015; 82550; 82962; 83036; 83605; 83735; 83880; 84100; 84145; 84443; 84484; 85025; 86140; 93005; 93017; 94664; 96365; 96366; 96372; 96374; 96376; 99285; G0378; J1265; J1650; J2405; J2470; J7030

== ENCOUNTER → 2023-12-01 13:30 | Outpatient (BNVA) | payer MEDICARE, OTHER, SELFPAY | PROVIDERS: PCP Internal Medicine; Visit Provider Internal Medicine Cardiovascular Disease | DX: R00.1 Bradycardia, unspecified (principal); I49.5 Sick sinus syndrome; I49.1 Atrial premature depolarization; I49.3 Ventricular premature depolarization; I47.10 Supraventricular tachycardia, unspecified | CPT/HCPCS: 93246 ==

== ENCOUNTER → 2023-12-30 16:26 | Outpatient (BNVA) | payer MEDICARE, OTHER, SELFPAY | PROVIDERS: PCP Internal Medicine; Visit Provider Internal Medicine Cardiovascular Disease | DX: I25.10 Atherosclerotic heart disease of native coronary artery without angina pectoris (principal); I10 Essential (primary) hypertension; E78.5 Hyperlipidemia, unspecified | CPT/HCPCS: 99213 ==

== ENCOUNTER 2024-04-07 12:36 | Emergency (ER) | payer MEDICARE, SELFPAY ==
[2024-04-07 12:37] VITALS: BP 137/78; PULSE 53; RESP 18; TEMP 36.7; O2SAT 91; BMI 27.2
--- NOTE | 2024-04-07 12:47 | US_ITS ---
WS: [id number] TESTICULAR ULTRASOUND HISTORY: testicle pain COMPARISON: None available. TECHNIQUE: Real-time and color Doppler imaging or utilized to perform a testicular ultrasound. Right testicle: 3.9 cm x 3.0 cm x 2.1 cm. Normal size and echogenicity. No mass or torsion. Normal color Doppler is present throughout. Systolic and diastolic velocities are both present. Small hydrocele. Right epididymis: Normal epididymis with no increased vascularity. Well-circumscribed hypoechoic extratesticular solid mass is identified in the superior scrotal wall. This corresponds to the palpable abnormality. Mass measures 2.0 x 1.9 cm. Left testicle: 4.0 cm x 2.7 cm x 2.3 cm. Normal size and echogenicity. No mass or torsion. Normal color Doppler is present throughout. Systolic and diastolic velocities are both present. No significant hydrocele. Left epididymis: Normal epididymis with no increased vascularity. US/US scrotum [id number] IMPRESSION: 1. No testicular mass or torsion. 2. Well-circumscribed extratesticular solid mass in the RIGHT scrotal wall. Ma ss measures 2.0 x 1.9 cm. Differential includes epidermal inclusion cyst and fi brous pseudotumor. Less likely adenomatoid tumor due to its location. Surgical excision may be necessary to confirm diagnosis.
--- NOTE | 2024-04-07 13:27 | ED_ITS ---
HPI - Male Genitourinary General: Chief complaint: Urogenital-Male Stated complaint: reff (richardson pamunkey),pain Time Seen by Provider: 04/07/24 12:47 Source: patient Mode of arrival: ambulatory Limitations: no limitations History of Present Illness: 73-year-old male states he lifts somethi ng heavy day before and states he has felt pain in his groin he states that since then he has had some bruising noted to his testicle as well. He states the pains improved but the bruising is worsening in 1 to make sure things are okay denies abdominal pain denies any difficulty urinating Associated symptoms: Deny dysuria, nausea or vomiting Related Data Home Medications Medication Instructions Recorded Confirmed acetaminophen 500 mg tablet 500 mg PO Q6H PRN Pain 01/29/20 04/07/24 (Tylenol Extra Strength) mecobalamin (vitamin B12) 1,000 1,000 mcg PO DAILY@0700 01/29/20 04/07/24 mcg chewable tablet (B12 Active) aspirin 81 mg tablet,delayed 81 mg PO DAILY@0700 04/03/20 04/07/24 release calcium carbonate 600 mg PO BID 12/03/21 04/07/24 magnesium 250 mg tablet 250 mg PO DAILY 12/03/21 04/07/24 pantoprazole 40 mg tablet,delayed 40 mg PO DAILY 12/18/22 04/07/24 release duloxetine 60 mg capsule,delayed 60 mg PO DAILY 06/18/23 04/07/24 release pregabalin 150 mg capsule 150 mg PO BID 11/29/23 04/07/24 terbinafine HCl 250 mg tablet 250 mg PO DAILY 11/29/23 04/07/24 clopidogrel 75 mg tablet 75 mg PO QAM 04/07/24 04/07/24 prednisone 10 mg tablet 10 mg PO DAILY 04/07/24 04/07/24 valsartan 80 mg tablet 80 mg PO DAILY 04/07/24 04/07/24 Previous Rx's Medication Instructions Recorded amlodipine 10 mg tablet 10 mg PO DAILY@0700 #90 tabs 03/23/24 atorvastatin 80 mg tablet See Rx Instructions .Route 03/24/24 .COMPLEX #90 tabs Allergies Allergy/AdvReac Type Severity Reaction Status Date / Time No Known Allergies Allergy Verified 04/07/24 12:41 Review of Systems Const: Denies: fever(s), chills, body aches or change in appetite ENMT: Denies: throat pain or dental pain Card: Denies: chest pain Resp: Denies: dyspnea GI: Denies: abdominal pain, nausea, vomiting or diarrhea : Denies: dysuria Musc: Denies: neck pain or back pain Skin/Breast: Denies: rash Neuro: Denies: headache(s) PFSH ED PFSH: Medical History Erectile dysfunction Bilateral renal stones HTN (hypertension) Dyslipidemia Myocardial infarction ASHD (arteriosclerotic heart disease) Surgical History S/P PTCA (percutaneous transluminal coronary angioplasty) Family History Father , at age 94 COVID-19 Mother , at age 92 No problems noted. 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 Physical Exam Const: COMMON NORMALS: no acute distress, patient oriented x3 and healthy appearing HENMT: COMMON NORMALS: normocephalic and atraumatic HEAD & SCALP: normocephalic and atraumatic Eye: COMMON NORMALS: conjunctivae normal CONJUNCTIVA: Yes conjunctivae normal Neck/C-Spine: COMMON NORMALS: full ROM and supple Chest: COMMONS NORMALS: normal inspection of the chest Resp: COMMON NORMALS: normal respiratory effort Cardio: COMMON NORMALS: regular rate RATE: regular rate GI: COMMON NORMALS: Normal to inspection, nondistended, normoactive bowel sounds present, Soft to palpation, non-tender and no masses PALPATION: Yes Soft to palpation : OTHER: Bruising noted base of the penis and testicles no tenderness noted Extremity: COMMON NORMALS: normal to inspection and full ROM Neuro: COMMON NORMALS: patient oriented x3, moves all extremities and no focal motor deficits Psych: COMMON NORMALS: mental status grossly normal, Normal thought process present and cooperative THOUGHT PROCESS: Normal thought process present Skin: COMMON NORMALS: no rashes or lesions noted and no wounds GENERAL SKIN EXAM: no rashes or lesions noted Course Vital Signs: Vital signs: Vital Signs Temperature 98.1 F 04/07/24 12:37 Pulse Rate 53 L 04/07/24 12:37 Respiratory Rate 18 04/07/24 12:37 Blood Pressure 137/78 04/07/24 12:37 Pulse Oximetry 91 04/07/24 12:37 Oxygen Delivery Me thod Room Air 04/07/24 12:37 MDM - Male Medical Decision Making Patient presents here with lump noted in his testicle along with some bruising bruising is likely from a muscle tear he has no tenderness to touch ultrasound did show a mass we will get him follow-up with urology no other acute findings he stable for discharge return if worsening Medical Records I reviewed the patient's medical records. Lab Data I reviewed the patient's lab results. Radiology Impressions Scrotum Ultrasound 04/07/24 12:47 IMPRESSION: 1. No testicular mass or torsion. 2. Well-circumscribed extratesticular solid mass in the RIGHT scrotal wall. Mass measures 2.0 x 1.9 cm. Differential includes epidermal inclusion cyst and fibrous pseudotumor. Less likely adenomatoid tumor due to its location. Surgical excision may be necessary to confirm diagnosis. All radiology interpretation(s) finalized by discharge Discharge Plan Discharge Patient Disposition: Home Clinical Impression: Mass of testicle Condition: Stable Prescriptions: No Action B12 Active 1,000 mcg tablet,chewable 1,000 mcg PO DAILY@0700 acetaminophen [Tylenol Extra Strength] 500 mg tablet 500 mg PO Q6H PRN (Reason: Pain) calcium carbonate 600 mg calcium (1,500 mg) tablet 600 mg PO BID magnesium 250 mg tablet 250 mg PO DAILY pantoprazole 40 mg tablet,delayed release (DR/EC) 40 mg PO DAILY duloxetine 60 mg capsule,delayed release(DR/EC) 60 mg PO DAILY amlodipine 10 mg tablet 10 mg PO DAILY@0700 Qty: 90 3RF atorvastatin 80 mg tablet See Rx Instructions .ROUTE .COMPLEX Qty: 90 3RF Dose Instruction: TAKE 1 TABLET BY MOUTH EVERYDAY AT BEDTIME Rx Instructions: TAKE 1 TABLET BY MOUTH EVERYDAY AT BEDTIME aspirin 81 mg Tablet,Delayed Release (Dr/Ec) 81 mg PO DAILY@0700 terbinafine HCl 250 mg tablet 250 mg PO DAILY pregabalin 150 mg capsule 150 mg PO BID valsartan 80 mg tablet 80 mg PO DAILY clopidogrel 75 mg tablet 75 mg PO QAM Rx Instructions: TAKE 1 TABLET BY MOUTH EVERY DAY AT 7AM prednisone 10 mg tablet 10 mg PO DAILY Discharge Orders: Discharge ED (Routine); Ordered 04/07/24 Ordered By: Kiera Ojeda Referrals: Nas Malagon DO [Primary Care Provider] - Discharge Diet: Advance as tolerated Discharge Activity: Resume usual activity Patient Instructions: Testicle Pain (ED) Coding Level of Care Code ED High Density Press Operator for Moshe Darby
[2024-04-07 14:45] VITALS: BP 125/68; PULSE 68; O2SAT 98
--- NOTE | 2024-04-11 08:57 | DCPLANNER ---
Referral sent to [facility] urology
== END 2024-04-07 14:46 | disposition home or self-care (01) ==
PROVIDERS: Emergency Provider Emergency Medicine; PCP Internal Medicine
DX: N50.89 Other specified disorders of the male genital organs (principal); Z79.82 Long term (current) use of aspirin; Z79.02 Long term (current) use of antithrombotics/antiplatelets; I10 Essential (primary) hypertension; E78.5 Hyperlipidemia, unspecified
CPT/HCPCS: 76870; 99284

== ENCOUNTER 2024-05-11 13:17 | Outpatient (CLI) | payer MEDICARE, SELFPAY ==
--- NOTE | 2024-05-11 13:19 | US_ITS ---
WS: [id number] TESTICULAR ULTRASOUND HISTORY: SCROTAL MASS COMPARISON: 04/07/2024 TECHNIQUE: Real-time and color Doppler imaging or utilized to perform a testicular ultrasound. Right testicle: 4.2 cm x 2.2 cm x 2.5 cm. Normal size and echogenicity. No mass or torsion. Normal color Doppler is present throughout. Systolic and diastolic velocities are both present. No significant hydrocele. Right epididymis: Normal epididymis with no increased vascularity. Hypoechoic solid mass well-circumscribed in the scrotal wall measures 1.4 x 1.3 x 1.7 cm. Similar in size and appearance to the prior study. Mass appears centered in the scrotal wall but does abut and s lightly displace the testicle. Left testicle: 3.7 cm x 2.6 cm x 1.8 cm. Normal size and echogenicity. No mass or torsion. Normal color Doppler is present throughout. Systolic and diastolic velocities are both present. Small hydrocele. Left epididymis: Normal epididymis with no increased vascularity. LEFT varicocele. US/US scrotum [id number] IMPRESSION: 1. No interval change in the solid mass centered in the RIGHT scrotal wall raphael suring 1.4 x 1.3 x 1.7 cm. As before the differential includes epidermal inclus ion cyst, fibrous pseudotumor or less likely adenomatoid tumor. Recommend surgi oren evaluation by urology. 2. Small LEFT varicocele. 3. Small LEFT hydrocele. 4. No testicular mass.
== END 2024-05-11 13:18 | disposition home or self-care (01) ==
PROVIDERS: PCP Family Medicine; Visit Provider Nurse Practitioner Family
DX: N50.9 Disorder of male genital organs, unspecified (principal); I86.1 Scrotal varices; N43.2 Other hydrocele; R93.89 Abnormal findings on diagnostic imaging of other specified body structures
CPT/HCPCS: 76870

== ENCOUNTER → 2024-05-24 12:55 | Outpatient (BNVA) | payer MEDICARE, OTHER, SELFPAY | PROVIDERS: PCP Family Medicine; Visit Provider Internal Medicine Cardiovascular Disease | DX: I25.10 Atherosclerotic heart disease of native coronary artery without angina pectoris (principal); I25.2 Old myocardial infarction; I10 Essential (primary) hypertension; I49.3 Ventricular premature depolarization; E78.5 Hyperlipidemia, unspecified; G62.9 Polyneuropathy, unspecified | CPT/HCPCS: 99214 ==